=== PATIENT | male | born 1980 | race Caucasian/White ===

== ENCOUNTER 2016-11-02 22:17 | Emergency (ER) | payer BC ==
[~2016-11-02] VITALS: Ht 172.7 cm; Wt 76.0 kg
[2016-11-02 22:24] VITALS: TEMP 37; Ht 172.7 cm; Wt 76.0 kg
[2016-11-02] MEDS ORDERED: XYLOCAINE 1%/SOD BICARB 20 ML VIAL INFIL ONE (22:30)
[2016-11-02 23:16] VITALS: BP 154/95; PULSE 87; O2SAT 96
--- NOTE | 2016-11-03 00:37 | EMERGENCY ROOM VISIT NOTE ---
ED Visit Note First contact with patient: 22:30 CHIEF COMPLAINT: Right leg laceration HISTORY OF PRESENT ILLNESS: This 36-year-old patient presents to the emergency department with family after cutting the right leg just above the knee. The bleeding has not stopped. Denies weakness or numbness of the extremity. patient has full range of motion of the extremity The patient rates the pain as mild and 2/10. The patient denies any other injuries. The patient's tetanus shot is up to date. He accidentally cut it on a knife just prior to arrival REVIEW OF SYSTEMS: A 6 system review of systems was completed with positives and pertinent negatives listed in the HPI. ALLERGIES: Environmental MEDICATIONS: None PMH: None SOCIAL HISTORY: No drug use PHYSICAL EXAM: Vital Signs: Reviewed Nurse's notes, vital signs stable. GENERAL : Pleasant male, in no acute distress, well developed, well nourished. SKIN: There is a 3 cm long laceration on the right leg just above the knee. The edges gape apart with traction. There is no foreign material in the wound and it looks clean. There is bleeding. No deep structures such as tendons, bones, or significant blood vessels are seen in the base of the wound. Extension and flexion of the extremity is full and strong. Full range of motion of the extremity. Capillary refill less than 2 seconds. Normal sensation to light and sharp touch. EMERGENCY DEPARTMENT COURSE: I examined the patient. Using sterile technique the wound was cleansed with Betadine. 3 ml of 1% buffered lidocaine was used to anesthetize the patient. The area was sterilely draped. Once the patient was anesthetized, the wound was copiously irrigated under pressure with sterile saline. The wound was explored and there were no deep structures injured. The laceration was repaired using 5 simple interrupted 4-0 nylon sutures. The patient tolerated the procedure well. Hemostasis was achieved. The area was cleaned with sterile saline and dressed with bacitracin ointment and bandage. The patient was discharged home in good condition. Differential diagnosis includes laceration, tendon injury, vascular injury and other etiologies were considered. DIAGNOSIS: Right leg laceration DISCHARGE INSTRUCTIONS & TREATMENT: Keep wound clean and dry. Do not allow any crusting or dried blood to accumulate on sutures. If this occurs, use a 1:1 solution of hydrogen peroxide/water on a Q-tip to clean the wound. Use an antibiotic ointment for 3-4 days, then let wound dry. Suture removal in 10-12 days. Return sooner for any signs of infection (increasing redness, swelling, drainage). Ice and elevate for swelling and pain. Ibuprofen 600 mg and Tylenol 1000 mg every 6 hrs for pain. Keep covered when in sun until sutures removed then SPF 50 or higher for one year. Vitamin E oil if desired two weeks after suture removal for reduction of scar. Current/Historical Medications Miscellaneous Medications None (Patient States No Home Meds) Allergies Uncoded Allergies: ENVIROMENTAL (Allergy, Mild, 05/25/08) NKDA (Allergy, Unknown, 07/24/03) Vital Signs Date Time Temp Pulse Resp B/P Pulse Ox O2 Delivery O2 Flow Rate FiO2 11/02/16 23:16 87 18 154/95 96 Room Air 11/02/16 22:24 37.0 83 16 150/92 96 Room Air Departure Information Impression Primary Impression: Laceration of right knee Dispostion Home / Self-Care Condition GOOD Forms HOME CARE DOCUMENTATION FORM, IMPORTANT VISIT INFORMATION Patient Instructions Formerly [facility], [facility], ED Laceration All Additional Instructions Keep wound clean and dry. Do not allow any crusting or dried blood to accumulate on sutures. If this occurs, use a 1:1 solution of hydrogen peroxide/ water on a Q-tip to clean the wound. Use an antibiotic ointment for 3-4 days, then let wound dry. Suture removal in 10-12 days. Return sooner for any signs of infection (increasing redness, swelling, drainage). Ice and elevate for swelling and pain. Ibuprofen 600 mg and Tylenol 1000 mg every 6 hrs for pain. Keep covered when in sun until sutures removed then SPF 50 or higher for one year. Vitamin E oil if desired two weeks after suture removal for reduction of scar
== END 2016-11-02 23:29 | disposition home or self-care (01) ==
LOC: C.EDB 22:18
DX: S81.011A Laceration without foreign body, right knee, initial encounter (principal); W26.0XXA Contact with knife, initial encounter

== ENCOUNTER 2024-12-15 13:23 | Inpatient (IN) ==
[2024-12-15] MEDS: ACETAMINOPHEN 1,000 MG/100 ML VIAL IV STA (13:53)
[2024-12-15 14:01] LABS: Basophils # (auto) 0.04 K/uL (0.00-0.20); Basophils % (auto) 0.6 %; Eosinophils # (auto) 0.36 K/uL (0.00-0.50); Hematocrit (blood only) 37.5 % (42.0-52.0); Hemoglobin 12.8 g/dl (14.0-18.0); Immature Granulocytes # (auto) 0.02 K/uL (0.01-0.20); Immature Granulocytes % (auto) 0.3 %; Lymphocytes # (auto) 1.07 K/uL (1.20-3.40); Lymphocytes % (auto) 14.8 %; Mean Corpuscular Hemoglobin 29.2 pg (25.0-34.0); Mean Corpuscular Hgb Conc 34.1 g/dL (32.0-36.0); Mean Corpuscular Volume 85.6 fL (80.0-100.0); Mean Platelet Volume 10.7 fL (9.4-12.4); Monocytes # (auto) 1.28 K/uL (0.11-0.59); Monocytes % (auto) 17.7 %; Neutrophils # (auto) 4.46 K/uL (1.40-6.50); Neutrophils % (auto) 61.6 %; Platelet Count 151 K/uL (130-400); RDW Coefficient of Variation 12.4 % (11.5-14.5); RDW Standard Deviation 38.7 fL (36.4-46.3); Red Blood Count 4.38 M/uL (4.70-6.10); White Blood Count 7.23 K/ul (4.8-10.8)
[2024-12-15 14:14] LABS: Alanine Aminotransferase 44 U/L (7-52); Albumin Globulin Ratio 1.4 (0.9-2); Albumin Level 4.2 gm/dl (3.4-5.0); Alkaline Phosphatase 72 U/L (34-104); Anion Gap 6 (3-11); Aspartate Aminotransferase 32 U/L (13-39); BUN Creatinine Ratio 14.2 (10-20); Bilirubin,Total 0.5 mg/dl (0.2-1.0); Blood Urea Nitrogen 15 mg/dl (6-23); Calcium 8.9 mg/dl (8.6-10.3); Carbon Dioxide 28 mmol/L (21-32); Chloride 102 mmol/L (98-107); Creatinine Clr Calc Pharmacy 91.3 ml/min; Glucose 121 mg/dl (70-99(Fasting)); Magnesium 1.7 mg/dl (1.7-2.4); Potassium 3.5 mmol/L (3.5-5.1); Sodium 136 mmol/L (136-145); Total Protein 7.2 gm/dl (6.0-8.3)
--- NOTE | 2024-12-15 14:14 | Emergency Department Note ---
Impression & Plan Acute dyspnea, Acute hypoxemic respiratory failure, RSV infection, Pneumonia ED Provider Note HISTORY OF PRESENT ILLNESS: Patient is a 44-year-old male presenting with shortness of breath. Patient reports that symptoms started 4 days ago. He reports that 3 days ago he had significant amounts of shortness of breath and was febrile. He reports he was feeling well yesterday, but today he was significantly short of breath. He went to [facility] and was given a breathing treatment and his saturations were around 98 and 93%. He was discharged with plans for chest x- ray and laboratory workup at [facility], but patient reports when leaving the [place] [facility], he sat in his car for about 15 minutes because he was so short of breath and did not feel well enough to drive. He reports he walked back into the walk-in clinic and they called 911. Patient denies any chest pain. He reports he has been using his rescue albuterol inhaler more frequently in the last 4 days with little relief in his symptoms. He reports intermittent fevers. He reports he has a cough productive of a yellow sputum. Denies any recent sick contact exposures. Denies any recent travel. Denies any DVT or PE history. He is not on any anticoagulation or antiplatelet therapies. ROS: as above PHYSICAL EXAM: Constitutional: Patient appears in no acute distress. HENT: Head: Normocephalic and atraumatic. Eyes: EOMI, PERRL Mouth/Throat: Mucous membranes moist. Neck: Trachea midline. Neck supple. Cardiovascular: Tachycardic with regular rhythm. No murmurs, rubs or gallops. Intact distal pulses. Pulmonary/Chest: No respiratory distress. Breath sounds clear and equal bilaterally. Expiratory wheezes bilateral lower lung beltran. Patient is on 2 L nasal cannula. Conversationally dyspneic. Abdominal: Abdomen soft, no tenderness, rebound or guarding. Musculoskeletal: No edema, tenderness or deformity noted. Skin: Warm and dry. No rash, erythema, pallor or cyanosis Psychiatric: Appropriate mood and affect for situation. Neurological: Alert and keenly responsive. CN II-XII grossly intact, moving all extremities equally and fully. MDM: - Vitals signs showed hypertension, tachycardia, fever and hypoxia. Patient placed on supplemental oxygen. - History obtained via patient. History as above. - Chronic conditions affecting care: Asthma - Differential diagnoses include, but are not limited to: Congestive heart failure; acute coronary syndrome; COPD/asthma exacerbation; pulmonary edema; pulmonary embolism; pneumonia; pneumothorax; viral syndrome - Order placed for continuous cardiac monitoring. At this time, monitor showed rate of 120 bpm with normal sinus rhythm, per my interpretation. - External medical records reviewed. - EKG image interpreted by myself showed normal sinus rhythm. Rate tachycardic at 117 bpm. QT 276. No acute ischemic changes. - Laboratory workup interpreted by myself showed normal WBC; normal PT/INR; stable electrolytes; normal lactate; normal troponin; normal procalcitonin - Blood cultures obtained - CXR image reviewed by myself looks like a right-sided pneumonia, per my interpretation. Radiology notes mild bibasilar patchy nodular opacities concerning for infection. - Viral respiratory panel positive for RSV - Patient given 1g IV tylenol for fever. Given an hour long duoneb treatment for his continued wheezing in the emergency department. - Given 80 mg IV solumedrol, 20 mg IV pepcid, 500 mg Po azithromycin and 2g IV rocephin in ER. - After the hour long duoneb treatment, patient's HR elevated at 140 bpm. Patient was taken off of the hour-long treatment after he completed and was transitioned back to nasal cannula. However, his saturations were at about 89% and he had to be increased to 4 L nasal cannula for improvement in his saturations. - CT PE obtained. - Discussion was had with supportive employment case manager about patient's case and need for admission - Hospitalist, Dr. Kumar, consulted for admission - [facility] ASSESSMENT AND PLAN: Diagnosis: Acute dyspnea; acute hypoxic respiratory failure; RSV infection; pneumonia Plan: Admit Past Med/Surg History Problem List (Updated 12/15/24 @ 15:51 by Keely Salinas MD) Pneumonia (Acute) RSV infection (Acute) Acute hypoxemic respiratory failure (Acute) Acute dyspnea (Acute) Social History Smoking Status: Never smoker Preferred Language: Venezuelan Feels Safe at Home: Yes Allergies Allergies Allergy/AdvReac Type Severity Reaction Status Date / Time pollen extracts Allergy Intermediate Wheezing Unverified 12/15/24 15:10 ENVIROMENTAL Allergy Mild Unknown Uncoded 12/15/24 15:10 [id number] Allergy Unknown Unknown Uncoded 12/15/24 15:10 Home Meds Home Medications Medication Instructions Recorded Confirmed albuterol sulfate 90 mcg/actuation 2 puff inhalation Q4H PRN Wheezing 12/15/24 12/15/24 aerosol inhaler montelukast 10 mg tablet 10 mg PO HS 12/15/24 12/15/24 tadalafil 10 mg tablet 10 mg PO DAILY PRN Erectile 12/15/24 12/15/24 Dysfunction Results & Data (ED) Vital Signs Vital Signs - 24 hr 12/15/24 13:27 12/15/24 13:50 12/15/24 14:00 Temperature 38.1 C H Temperature Source Oral Pulse Rate 121 H 113 H Pulse Rate [Apical] Pulse Rate from SpO2 Sensor Pulse Rhythm Regular Pulse Strength Normal Respiratory Rate 24 Respiratory Effort / Characteristics Labored Respiratory Pattern Regular Blood Pressure 152/102 H Blood Pressure Mean 118 Blood Pressure Position Sitting Pulse Oximetry 93 89 L Oxygen Delivery Method Room Air Room Air Oxygen Flow Rate Sepsis Recent Fever Within 48 Hours No Sepsis New/Unexplained Change in Mental Status No Sepsis Action Taken by Nursing No Action Required Oxygen Flow Rate - Titration 2 Pulse Oximetry Post Tiitration 95 12/15/24 14:25 12/15/24 15:00 Temperature Temperature Source Pulse Rate 117 H Pulse Rate [Apical] 111 H Pulse Rate from SpO2 Sensor 116 H Pulse Rhythm Pulse Strength Respiratory Rate 20 23 Respiratory Effort / Characteristics Non-Labored Spontaneous Respiratory Pattern Blood Pressure 143/98 H Blood Pressure Mean 113 Blood Pressure Position Pulse Oximetry 91 98 Oxygen Delivery Method Nasal Cannula Oxygen Flow Rate 2 Sepsis Recent Fever Within 48 Hours Sepsis New/Unexplained Change in Mental Status Sepsis Action Taken by Nursing Oxygen Flow Rate - Titration Pulse Oximetry Post Tiitration Laboratory Data 12/15/24 13:34 12/15/24 13:34 Lab Results 12/15/24 12/15/24 12/15/24 Range/Units 13:34 13:52 14:13 WBC 7.23 (4.8-10.8) K/ul RBC 4.38 L (4.70-6.10) M/uL Hgb 12.8 L (14.0-18.0) g/dl Hct 37.5 L (42.0-52.0) % MCV 85.6 (80.0-100.0) fL MCH 29.2 (25.0-34.0) pg MCHC 34.1 (32.0-36.0) g/dL RDW Std Deviation 38.7 (36.4-46.3) fL RDW Coeff of Amrit 12.4 (11.5-14.5) % Plt Count 151 (130-400) K/uL MPV 10.7 (9.4-12.4) fL Immature Gran % (Auto) 0.3 % Neut % (Auto) 61.6 % Lymph % (Auto) 14.8 % [place] % (Auto) 17.7 % Eos % (Auto) 5.0 % Baso % (Auto) 0.6 % Neut # (Auto) 4.46 (1.40-6.50) K/uL Lymph # (Auto) 1.07 L (1.20-3.40) K/uL [place] # (Auto) 1.28 H (0.11-0.59) K/uL Eos # (Auto) 0.36 (0.00-0.50) K/uL Baso # (Auto) 0.04 (0.00-0.20) K/uL Immature Gran # (Auto) 0.02 (0.01-0.20) K/uL PT 11.4 (9.0-12.0) Seconds INR 1.1 (0.9-1.1) APTT 27 (21-31) Seconds PTT Ratio 1.0 Sodium 136 (136-145) mmol/L Potassium 3.5 (3.5-5.1) mmol/L Chloride 102 (98-107) mmol/L Carbon Dioxide 28 (21-32) mmol/L Anion Gap 6 (3-11) BUN 15 (6-23) mg/dl Creatinine 1.06 (0.6-1.4) mg/dl Est Cr Clr Drug Dosing 91.3 ml/min eGFR 87.65 BUN/Creatinine Ratio 14.2 (10-20) Glucose 121 H (70-99(Fasting)) mg/dl Lactate 0.9 (0.4-2.0) mmol/L Calcium 8.9 (8.6-10.3) mg/dl Magnesium 1.7 (1.7-2.4) mg/dl Total Bilirubin 0.5 (0.2-1.0) mg/dl AST 32 (13-39) U/L ALT 44 (7-52) U/L Alkaline Phosphatase 72 (34-104) U/L Troponin I High Sens < 2.3 (0-20) pg/ml Total Protein 7.2 (6.0-8.3) gm/dl Albumin 4.2 (3.4-5.0) gm/dl Globulin 3.0 (2.5-4.0) gm/dl Albumin/Globulin Ratio 1.4 (0.9-2) Procalcitonin 0.11 (0-0.5) ng/ml Adenovirus (PCR) Not Detected (NotDetected) B. pertussis DNA (PCR) Not Detected (NotDetected) B.parapertussis DNA PCR Not Detected (NotDetected) C. pneumoniae DNA (PCR) Not Detected (NotDetected) Coronavirus OC43 (PCR) Not Detected (NotDetected) Coronavirus HKU1 (PCR) Not Detected (NotDetected) Coronavirus 229E (PCR) Not Detected (NotDetected) SARS-CoV-2 (PCR) Not Detected (NotDetected) Coronavirus NL63 (PCR) Not Detected (NotDetected) Human Metapneumovir PCR Not Detected (NotDetected) Influenza Type A (PCR) Not Detected (NotDetected) Influenza Type B (PCR) Not Detected (NotDetected) M. pneumoniae (PCR) Not Detected (NotDetected) Parainfluenza 1 (PCR) Not Detected (NotDetected) Parainfluenza 2 (PCR) Not Detected (NotDetected) Parainfluenza 3 (PCR) Not Detected (NotDetected) Parainfluenza 4 (PCR) Not Detected (NotDetected) RSV (PCR) DETECTED A (NotDetected) Entero/Rhino (PCR) Not Detected (NotDetected) Administered Medications Discontinued Medications Albuterol (Albut/Ipratrop 3mg/0.5mg Neb 3 Ml Vial) 12 ml NEB ONE ONE; Protocol Stop: 12/15/24 14:11 Last Admin: 12/15/24 14:20 Dose: 12 ml Documented By: JTM Azithromycin (Azithromycin 250 Mg Tab) 500 mg PO NOW ONE Stop: 12/15/24 15:36 Last Admin: 12/15/24 15:48 Dose: 500 mg Documented By: BS Acetaminophen (Ofirmev) 1,000 mg in 100 mls @ 400 mls/hr IV NOW STA Stop: 12/15/24 13:55 Last Infusion: 12/15/24 15:55 Dose: Infused Documented By: Admin: 12/15/24 13:53 Dose: 400 mls/hr Documented By: GEORGE Famotidine (Pepcid 20mg Iv Push) 20 mg in 5 mls @ 2.5 mls/min IV NOW STA Stop: 12/15/24 15:36 Last Admin: 12/15/24 15:49 Dose: 2.5 mls/min Documented By: BS Ceftriaxone Sodium (Rocephin) 2,000 mg in 50 mls @ 100 mls/hr IV NOW STA Stop: 12/15/24 16:04 Last Admin: 12/15/24 15:49 Dose: 100 mls/hr Documented By: KELLY Ioversol (Optiray 320 125ml) 118 ml IV ONCE ONE Stop: 12/15/24 16:04 Last Admin: 12/15/24 16:03 Dose: 118 ml Documented By: DAINA Methylprednisolone (Methylprednisolone 125 Mg/2 Ml Vial) 80 mg IV NOW STA Stop: 12/15/24 15:36 Last Admin: 12/15/24 15:49 Dose: 80 mg Documented By: KELLY Imaging Data Radiologist's Impression: Chest X-Ray 12/15/24 13:30 Chest radiograph, one view History: Shortness of breath Comparison: None Findings: Single AP view of the chest performed. Mild patchy nodular opacities seen in the lung bases, right greater than left. Pleural effusion. No pneumothorax. The cardiomediastinal silhouette is within normal limits. Normal pulmonary vascularity. No evidence for lymphadenopathy. No visualized bony or soft tissue abnormality. Impression: Mild bibasilar patchy nodular opacities, concerning for infection Electronically signed by Farshad Mckeon 12-15-2024 2:16 PM Discharge Plan Visit Data Chief Complaint: Shortness of Breath/Dyspnea Stated Complaint: Shortness of Breath/Dyspnea ED Provider: Keely Salinas Discharge Problem: Acute dyspnea, Acute hypoxemic respiratory failure, RSV infection, Pneumonia Forms Stand Alone Forms: [facility] Prescriptions Prescriptions: No Action montelukast 10 mg tablet 10 mg PO HS albuterol sulfate 90 mcg/actuation HFA aerosol inhaler 2 puff INHALATION Q4H PRN (Reason: Wheezing) tadalafil 10 mg tablet 10 mg PO DAILY PRN (Reason: Erectile Dysfunction) Referrals Referrals: Sharan Blanchard MD [Primary Care Provider] -
[2024-12-15] MEDS: ALBUT/IPRATROP 3MG/0.5MG NEB 3 ML VIAL NEB ONE (14:20)
[2024-12-15 14:21] LABS: Troponin I High Sensitivity < 2.3 pg/ml (0-20)
[2024-12-15 14:27] LABS: INR 1.1 (0.9-1.1); Partial Thromboplastin Time 27 Seconds (21-31); Prothrombin Time 11.4 Seconds (9.0-12.0)
[2024-12-15 14:58] LABS: Adenovirus PCR Not Detected (NotDetected); Bordetella parapertussis PCR Not Detected (NotDetected); Bordetella pertussis PCR Not Detected (NotDetected); Chlamydia pneumoniae PCR Not Detected (NotDetected); Coronavirus 229E PCR Not Detected (NotDetected); Coronavirus CoV-2 (COVID19)PCR Not Detected (NotDetected); Coronavirus HKU1 PCR Not Detected (NotDetected); Coronavirus NL63 PCR Not Detected (NotDetected); Coronavirus OC43PCR Not Detected (NotDetected); Human Metapneumovirus PCR Not Detected (NotDetected); Influenza A PCR Not Detected (NotDetected); Influenza B PCR Not Detected (NotDetected); Mycoplasma pneumoniae PCR Not Detected (NotDetected); Parainfluenza Virus 1 PCR Not Detected (NotDetected); Parainfluenza Virus 2 PCR Not Detected (NotDetected); Parainfluenza Virus 3 PCR Not Detected (NotDetected); Parainfluenza Virus 4 PCR Not Detected (NotDetected); Respiratory Syncytial VirusPCR DETECTED (NotDetected); Rhinovirus/Enterovirus PCR Not Detected (NotDetected)
[2024-12-15] MEDS: AZITHROMYCIN 250 MG TAB PO ONE (15:48)
[2024-12-15] MEDS: FAMOTIDINE 20MG IV PUSH 20 MG/5 ML SYR IV STA (15:49)
[2024-12-15] MEDS: methylPREDNISolone 125 MG/2 ML VIAL IV STA (15:49)
[2024-12-15] MEDS: cefTRIAXone SODIUM 2,000 MG/50 ML BAG IV STA (15:49)
[2024-12-15] MEDS: OPTIRAY 320 125ml IV ONE (16:03)
--- NOTE | 2024-12-15 16:18 | History & Physical Report ---
Date of Service December 15, 2024 Assessment & Plan (1) Acute hypoxemic respiratory failure: (2) RSV infection: Plan Mr. Tran is a 44 year old gentleman with past medical history remarkable for obesity, asthma, and erectile dysfunction presented to [facility] ED due to shortness of breath and admitted to [facility] for management of acute hypoxic resp failure iso RSV pneumonia #Acute hypoxic resp failure #RSV pneumonia #Asthma exacerbation CXR with opacities, CTA obtained by ED iso tachycardia, no emboli s/p CTX and axithro, solumedrol, 1 hour neb procal 0.11 Continue with Azithro 500mg x 3 days for antiinflammatory, atypical coverage, however, low suspicion for other bacterial superimposed pneumonia at this time Continue with IV solumedrol 40mg qam, consider transition to po Schedule xopenex over albuterol iso sinus tachycardia Mucinex to aid in clearance tylenol prn Wean oxygen as able encourage ambulation Symptomatic management #Seasonal allergies continue zyrtec and flonase #Sinus tachycardia noted s/p prolonged neb Monitor on tele utilize xopenex at this time q 6 #obesity follows OP physician and working to lose weight dvt ppx lovenox Full Code dispo likely 1-2 days contingent on o2 requirement Admission and Anticipated Discharge Date Admission Date: Time spent evaluating patient, direct bedside care, chart review, placing orders, interpretation of diagnostic studies, discussion with consultants, patient, and family members, as well as other required patient management activities is 75 minutes. History of Present Illness Chief Complaint: SOB Primary Care Provider: Sharan Blanchard MD Mr. Tran is a 44 year old gentleman with past medical history remarkable for obesity, asthma, and erectile dysfunction presented to [facility] ED due to shortness of breath. Patient states he noted he was feeling poorly on Tuesday. He experienced weakness and fatigue mostly, until Tuesday evening until this morning, when he noted more shortness of breath and coughing. He began using his albuterol inhaler without much improvement prompting his presentation to a [facility]. They administered a breathing treatment and did a walk test with normal saturations; however, upon attempting to leave the clinic, patient felt lightheaded and more short of breath. EMS was called and patient was brought to ED. Patient denies sputum production, chest pain, diarrhea, urinary symptoms. He reports subjective fevers, cough, and wheezing. He reports notable improvement since arrival to ED, but still with o2 requirement Of note, heart rates in 120s s/p 1 hour long neb treatment In the ED, vitals were notable for BP of 140s-150s HR of 110s-120s, and O2 sat of high 90s on 4L NC TMAX 38.1 Imaging revealed opacities consistent with infection, RSV positive EKG sinus tachycardia ED interventions: azithro, Rocephin, methylpred, albuterol Patient to be admitted to [facility] for further evaluation and management of acute hypoxic resp failure iso RSV infection Allergies Allergy/AdvReac Type Severity Reaction Status Date / Time pollen extracts Allergy Intermediate Wheezing Unverified 12/15/24 15:10 ENVIROMENTAL Allergy Mild Unknown Uncoded 12/15/24 15:10 [id number] Allergy Unknown Unknown Uncoded 12/15/24 15:10 Home Medications Medication Instructions Recorded Confirmed Type albuterol sulfate 90 mcg/actuation 2 puff inhalation Q4H PRN Wheezing 12/15/24 12/15/24 History aerosol inhaler montelukast 10 mg tablet 10 mg PO HS 12/15/24 12/15/24 History tadalafil 10 mg tablet 10 mg PO DAILY PRN Erectile 12/15/24 12/15/24 History Dysfunction Past Med/Surg History Problem List (Updated 12/15/24 @ 18:05 by Jalyn Kumar MD) Pneumonia (Acute) RSV infection (Acute) Acute hypoxemic respiratory failure (Acute) Acute dyspnea (Acute) Medical History (Updated 12/15/24 @ 18:05 by Jalyn Kumar MD) Erectile disorder Obese Asthma Social History Smoking Status: Never smoker Preferred Language: Lithuanian Feels Safe at Home: Yes Review of Systems Review of Systems: Constitutional: (+) fever/chills, (-) recent loss of weight, (-) appetite changes, (-) night sweats. Head: (-) headache, (-) dizziness. Eye: (-) blurring of vision, (-) double vision, (-) redness. Ear: (-) hearing loss, (-) discharge, (-) vertigo Nose: (-) discharge, (-) bleeding, (-) congestion, (-) post nasal drip. Throat: (-) sore throat, (-) hoarseness of voice, (-) odynophagia. Cardiovascular: (-) chest pain, (-) palpitations, (-) syncope, (-) orthopnea, (- ) PND, (-) leg swelling. Respiratory: (+) shortness of breath, (+) cough, (+) wheezing, (-) hemoptysis. Neuro: (-) weakness in extremities, (-) numbness, (-) tingling, (-) tremor. Gastrointestinal: (-) belly pain, (-) belly distension, (-) nausea, (-) vomiting, (-) diarrhea, (-) constipation Genitourinary: (-) hematuria, (-) dysuria, (-) polyuria, (-) hesitancy, (-) frequency, (-) urinary incontinence. Musculoskeletal: (+) myalgia, (-) arthralgia. Skin: (-) rashes. Endocrine: (-) heat/cold intolerance. Psychiatry: (-) depression, (-) hallucination. Physical Exam Physical Exam: GENERAL APPEARANCE: AxOx4, generally well-appearing male, no acute distress. HEENT: NC, AT. MMM. EOMI, clear conjunctiva, oropharynx clear. NECK: Supple without lymphadenopathy. No stiffness or restricted ROM. HEART: Normal rate and regular rhythm, normal S1/S1, no m/r/g LUNGS: expiratory wheezing L>R, scattered ABDOMEN: Soft, nontender, nondistended with good bowel sounds heard. BACK: No CVAT, no obvious deformity. EXTREMITIES: Without cyanosis, clubbing or edema. NEUROLOGICAL: Grossly nonfocal. Alert and oriented, moving all 4 extremities. CN not formally tested but appear grossly intact. Skin: Warm and dry without any rash. Results & Data Results & Data Vital Signs (Past 12 Hours) Vital Signs Temp Pulse Pulse Resp BP Pulse Ox O2 Del Method 12/15/24 15:00 117 H 23 143/98 H 98 12/15/24 14:25 111 H 20 91 Nasal Cannula 12/15/24 14:00 113 H 12/15/24 13:50 89 L Room Air 12/15/24 13:27 38.1 C H 121 H 24 152/102 H 93 Room Air O2 Flow Rate 12/15/24 15:00 12/15/24 14:25 2 12/15/24 14:00 12/15/24 13:50 12/15/24 13:27 Laboratory Results Short CBC 12/15/24 Range/Units 13:34 WBC 7.23 (4.8-10.8) K/ul Hgb 12.8 L (14.0-18.0) g/dl Hct 37.5 L (42.0-52.0) % Plt Count 151 (130-400) K/uL BMP 12/15/24 13:34 Sodium 136 Potassium 3.5 Chloride 102 Carbon Dioxide 28 BUN 15 Creatinine 1.06 Glucose 121 H Calcium 8.9 Liver Function 12/15/24 Range/Units 13:34 Total Bilirubin 0.5 (0.2-1.0) mg/dl AST 32 (13-39) U/L ALT 44 (7-52) U/L Alkaline Phosphatase 72 (34-104) U/L Albumin 4.2 (3.4-5.0) gm/dl Diagnostic Findings Home Medications Medication Instructions Recorded Confirmed Last Taken albuterol sulfate 90 mcg/actuation 2 puff inhalation Q4H PRN Wheezing 12/15/24 12/15/24 12/15/24 aerosol inhaler montelukast 10 mg tablet 10 mg PO HS 12/15/24 12/15/24 2 Days Ago ~12/13/24 tadalafil 10 mg tablet 10 mg PO DAILY PRN Erectile 12/15/24 12/15/24 Unknown Dysfunction Active Medications Generic Name Dose Route Start Last Admin Trade Name Freq PRN Reason Stop Dose Admin Magnesium Sulfate/Dextrose 1 gm in 100 mls @ 50 mls/hr 12/15/24 16:30 12/15/24 17:12 Magnesium Sulfate / D5w IV 12/15/24 20:29 50 mls/hr Q2H [facility] Administration Medications Administered Home Medications Medication Instructions Recorded Confirmed albuterol sulfate 90 mcg/actuation 2 puff inhalation Q4H PRN Wheezing 12/15/24 12/15/24 aerosol inhaler montelukast 10 mg tablet 10 mg PO HS 12/15/24 12/15/24 tadalafil 10 mg tablet 10 mg PO DAILY PRN Erectile 12/15/24 12/15/24 Dysfunction Magnesium Sulfate/Dextrose (Magnesium Sulfate / D5w) 1 gm in 100 mls @ 50 mls/hr IV Q2H TWAN Stop: 12/15/24 20:29 Last Admin: 12/15/24 17:12 Dose: 50 mls/hr Documented By: KELLY
[2024-12-15] MEDS: MAGNESIUM SULFATE / D5W 1 GM/100 ML BAG IV SCH (17:12)
[2024-12-15] MEDS: POTASSIUM CHLORIDE CRTAB 20 MEQ TABCR PO STA (17:12)
--- NOTE | 2024-12-15 17:25 | CT Scan Report ---
EXAM: CT angio chest PE protocol CLINICAL HISTORY: PE TECHNIQUE: CT angiography of the chest was performed with and without intravenous contrast with the following protocol: axial images with, reconstructed coronal and sagittal images. Non-contrast images were initially acquired, followed by contrast-enhanced images in arterial and venous phases. Intravenous contrast was administered using automated injection techniques. Bolus tracking was employed to optimize arterial phase imaging. One of these 3D techniques was utilized: Maximum Intensity Pixel (MIP), 3D Reconstructed Images, Volume Rendered Images, Surface Shaded Rendering. One of the following dose reduction techniques was utilized for this exam: Automated exposure control, adjustment of the mA and/or kV according to patient size, and use of iterative reconstruction. COMPARISON: No prior studies available for comparison. FINDINGS: Aorta and Great Vessels: Ascending Aorta: Normal in caliber, no aneurysm, dissection, or significant atherosclerosis. Aortic Arch: Normal in caliber, no aneurysm, dissection, or significant atherosclerosis. Descending Aorta: Normal in caliber, no aneurysm, dissection, or significant atherosclerosis. Pulmonary Arteries: The main pulmonary artery and its branches are patent. No evidence of pulmonary embolism or significant stenosis. Heart: Cardiac Chambers: Normal in size. No evidence of cardiomegaly. Pericardium: No pericardial effusion or thickening. Lungs and Pleura: Multiple areas of ground glass opacities and consolidation patches are seen at the right lower lung zone with airbronchogram inside, associated with atelactatic bands No pleural effusion or pleural thickening. Mediastinum: Few mediastinal lymphadenopathies do not reach the suspicious size Normal appearance of the trachea and central bronchi. Hilar Structures: Hilar structures are normal without enlargement. Chest Wall: No mass lesions or abnormalities in the chest wall. Vascular Structures: Superior Vena Cava: Patent without evidence of stenosis or thrombus. Inferior Vena Cava: Patent without evidence of stenosis or thrombus. Bones and Soft Tissues: No fractures, lytic, or blastic lesions of the visualized bony structures. Soft tissues are unremarkable. IMPRESSION: - The study is negative for pulmonary embolism. - Consolidation patches are seen in the right lower lung zone possibly pneumonic patches. - Correlate clinically. Electronically signed by Jose Elias Olivera 12-15-2024 5:25 PM
--- NOTE | 2024-12-15 18:28 | Electrocardiogram Report ---
Test Reason : Blood Pressure : */* mmHG Vent. Rate : 117 BPM Atrial Rate : 117 BPM P-R Int : 148 ms QRS Dur : 74 ms QT Int : 276 ms P-R-T Axes : 63 105 55 degrees QTcB Int : 385 ms Sinus tachycardia Possible Left atrial enlargement Rightward axis Borderline ECG No previous ECGs available Confirmed by Farshad Marlow ([id number]) on 12/15/2024 6:28:31 PM Referred By: REFERRED SELF Confirmed By: Farshad Marlow
[2024-12-15] MEDS ORDERED: BENZONATATE 100 MG CAPSULE PO PRN (18:36)
[2024-12-15] MEDS ORDERED: MELATONIN 3 MG TAB PO PRN (18:36)
[2024-12-15] MEDS ORDERED: POLYETHYLENE (MIRALAX) 17 GM PACK PO PRN (18:36)
[2024-12-15] MEDS ORDERED: ONDANSETRON INJ 2 MG/ML 2 ML VIAL IV PRN (18:36)
[2024-12-15 18:39] LABS: Iron 19 mcg/dl (35-175); Total Iron Binding Cap Calc 385 mcg/dl (250-450); Transferrin 275 mg/dl (200-360); Transferrin (FE) Percent Satur 5 % (20-50)
--- OUTSIDE RECORDS SUMMARY | 2024-12-15 18:45 | External Medical Summary | Summary of Care ---
Author Name Unknown Organization [facility] Address [address] [place] [address] Phone [phone] Care Team Providers Care Train Operations Supervisor Name Role Phone Sharan Blanchard MD Primary Care Provider [phone] Reason for Visit * Reason Onset Date Comments Cold Symptoms Respiratory Infection 12/15/2024 Encounter Details Date Type Department Care Team (Latest Contact Info) Description 12/15/2024 11:30 AM EDT [facility] [address] [phone] Lucio Bardales PA-C [address] [place] [phone] SOB (shortness of breath)*; Hypoxia; Pneumonia of both lungs due to infectious organism, unspecified part of lung; Nausea Allergies Active Allergy Reactions Criticality Noted Date Comments Cat Dander Edema airway High 11/13/2014 Egg White (Egg Protein) Edema airway High 11/13/2014 Pollen Other (Please comment) 11/13/2014 Stuffy nose, itchy, watery eyes. Tomato Edema airway High 11/13/2014 documented as of this encounter (statuses as of 12/15/2024) Medications Saline Nasal Fairview 0.65 % Nasal Solution (Hendricks) Administer 1 Fairview into nostril as needed for Congestion. Active Fluticasone Propionate 50 MCG/ACT Nasal Suspension (Flonase) Administer 2 Sprays into each nostril in the morning. 48 mL 1 4 Active Montelukast Sodium 10 MG Oral Tablet (Singulair)Indic ations:Allergic rhinitis, unspecified seasonality, unspecified trigger TAKE 1 TABLET BY MOUTH EVERYDAY AT BEDTIME Strength: 10 mg 90 Tablet 1 5 Active Albuterol Sulfate HFA 108 (90 Base) MCG/ACT Inhalation Aerosol SolutionIndicati ons:Chronic cough,Wheeze INHALE 2 PUFFS BY MOUTH EVERY 4 HRS NEEDED FOR WHEEZING Strength: 108 (90 BASE) MCG/ACT 36 g 5 5 Active Tadalafil 10 MG Oral TabletIndication s:Erectile dysfunction, unspecified erectile dysfunction type Take 1 Tablet by mouth daily as needed for Erectile Dysfunction. 10 Tablet 5 Active Amoxicillin 500 MG Oral Capsule (Amoxil)Indicati ons:SOB (shortness of breath),Hypoxia, Pneumonia of both lungs due to infectious organism, unspecified part of lung Take 1 Capsule by mouth in the morning and 1 Capsule at noon and 1 Capsule before bedtime. Do all this for 7 days. 21 Capsule 5 12/23/19 25 Active Azithromycin 250 MG Oral Tablet (Zithromax Z-Cecil)Indication s:SOB (shortness of breath),Hypoxia, Pneumonia of both lungs due to infectious organism, unspecified part of lung Take two tablets by mouth on first day, then 1 tablet daily until gone 6 Tablet 5 Active predniSONE 10 MG Oral Tablet (Deltasone)Indic ations:SOB (shortness of breath),Hypoxia, Pneumonia of both lungs due to infectious organism, unspecified part of lung Take 5 tabs for 2 days, 4 tabs for 2 days, 3 tabs for 2 days, 2 tabs for 2 days 1 tab for 2 days 30 Tablet 5 Active Hospital, Clinic, or Other Facility Administered Medication Ordered Dose Route Frequency Start Date End Date Status albuterol-ipratropium (Duoneb) inhalation solution 3 mLIndications:SOB (shortness of breath),Hypoxia 3 mL NEBULIZER ONCE 12/15/2024 12/15/2024 Ended ondansetron ODT (Zofran) tab 4 mgIndications:Nausea 4 mg OR ONCE 12/15/2024 12/15/2024 [address] d documented as of this encounter (statuses as of 12/15/2024) Active Problems Problem Noted Date Diagnosed Date Screening for cardiovascular condition 5 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 Allergic rhinitis 03/02/2013 Elevated blood pressure, situational 02/21/2012 Overweight (BMI 25.0-29.9) 09/08/2011 Overview (09/08/2011): BMI= 27.10 09/08/11 Epidermal inclusion cyst 09/08/2011 documented as of this encounter (statuses as of 12/15/2024) Resolved Problems Problem Noted Date Diagnosed Date Resolved Date Encounter for sterilization 11/13/2014 03/16/2018 Overview (05/30/2017): ICD-10 update of inactive term Overweight (BMI 25.0-29.9) 11/11/2014 0 03/16/2018 Overview (11/11/2014): bmi= 28.58 11/11/14 Chews tobacco 11/11/2014 09/10/2022 Chronic sinusitis 05/05/2012 03/16/2018 Chronic rhinitis 05/05/2012 03/02/2013 Cough 05/05/2012 03/16/2018 Open wound of finger 02/21/2012 018 Need for diphtheria-tetanus- pertussis (Tdap) vaccine 02/21/2012 03/16/2018 Scalp cyst 09/08/2011 03/16/2018 Routine medical exam 09/08/2011 018 Arm numbness 09/08/2011 03/16/2018 Tobacco use disorder 09/08/2011 015 Chickenpox 03/16/2018 documented as of this encounter (statuses as of 12/15/2024) Immunizations Name Administration Dates Next Due TDAP (age 10 and older)(Boostrix) 02/28/2012 documented as of this encounter Social History Tobacco Use Types Packs/Day Years Used Date Smoking Tobacco: Former Cigarettes 0.5 4 0 11/28/2007 - 11/28/2011 Passive Smoke Exposure: Past Smokeless Tobacco: Former Snuff Quit: 07/05/2018 Comments:began at age 26, la st tried to quit 2010 Alcohol Use Standard Drinks/Week Comments Yes 0 (1 standard drink = 0.6 oz pur e alcohol) once a week PHQ-2 Answer Date Recorded PHQ-2 Score 0 05/22/2019 Hunger Vital Sign Answer Date Recorded Within the past 12 months, y ou worried that your food would run out before you got the money to buy more. Never true 08/31/19 25 Within the past 12 months, t he food you bought just didn't last and you didn't have money to get more. Never true 08/31/2024 Childcare Answer Date Recorded Do you feel overwhelmed with taking care of a child, family member or friend? No 08/31/2024 Does your family need help f inding childcare? (Household - for ages 0-17 years) Not on file 08/31/2024 Clothing Answer Date Recorded Have you been unable to get clothing when it was really needed? No 08/31/2024 Is your family able to get c lothes or diapers when needed? (Household - for ages 0-17 years) Not on file 08/31/2024 Personal Safety Answer Date Recorded Do you feel unsafe or have concerns for your saf ety? No 08/31/2024 Do you have concerns for you r family's safety? (Household - for ages 0-17 years) Not on file 08/31/2024 Utilities Answer Date Recorded Do you have trouble paying y our heating, water, or electric bill? No 08/31/2024 Is your family able to pay t he heat, water, or electric bill? (Household - for ages 0-17 years) Not on file 08/31/2024 Does your family have access to good internet? (Household - for ages 0-17 years) Not on file 08/31/2024 Employment Status Answer Date Recorded Are you unemployed or without regular income? No 08/31/2024 Does the household have a re gular source of income? (Household - for ages 0-17 years) Not on file 08/31/2024 Social Connections Answer Date Recorded How often do you feel lonely or isolated from those around you? Sometimes 08/31/2024 Financial Resource Strain Answer Date R ecorded Do you have any trouble payi ng for your medications, or do you think you might in the future? No 08/31/2024 Does your family have troubl e paying for medicine? (Household - for ages 0-17 years) Not on file 08/31/2024 Transportation Needs Answer Date Record ed Do you have trouble getting a ride to medical visits or work? (Adult - for ages 18 years and over) Not on file 08/31/2024 Does your family have a hard time getting a ride to doctors visits? (Household - for ages 0-17 years) Not on file 08/31/2024 Has lack of transportation k ept you from medical appointments, meetings, work, or from getting things needed for daily living? Check all that apply. No 08/31/2024 Do you (or your family) have trouble finding or paying for a ride (transportation)? (Household - for ages 0-17 years) Not on file 08/31/2024 Housing Stability Answer Date Recorded Do you currently live in a s helter or have no steady place to sleep at night? Yes 08/31/2024 Do you think you are at risk of becoming homeless? (Adult - for ages 18 years and over) Not on file 08/31/2024 Does your family worry about paying for your home or becoming homeless? (Household - for ages 0-17 years) Not on file 0 08/31/2024 Are you homeless or worried that you might be in the future? No 08/31/2024 Are you (or your family) corinna eless or worried that you might be in the future? (Household - for ages 0-17 years) Not on file Food Insecurity Answer Date Recorded Do you need food for this week? No 08/31/2024 Are you able to get enough f ood for your family? (Household - for ages 0-17 years) Not on file 08/31/2024 Does your family need food t his week? (Household - for ages 0-17 years) Not on file 08/31/2024 Do you always have enough fo od for your family? (Household - for ages 0-17 years) Not on file 08/31/2024 Food Insecurity Answer Date Recorded Within the past 12 months, y ou worried that your food would run out before you got the money to buy more. Never true 08/31/19 25 Within the past 12 months, t he food you bought just didn't last and you didn't have money to get more. Never true 08/31/2024 Do you need food for this week? No 08/31/2024 Sex and Gender Information Value Date Recorded Sex Assigned at Male 02/02/2019 2:40 PM EDT Legal Sex Male 6:56 AM EST Gender Identity Male 02/02/2019 2:40 PM EDT Sexual Orientation Straight 02/02/2019 2: 40 PM EDT documented as of this encounter Last Filed Vital Signs Vital Sign Reading Time Taken Comments Blood Pressure 130/60 12/15/2024 11:39 AM EDT Pulse 120 12/15/2024 11:39 AM EDT Temperature 38.2 °C (100.8 °F) 12/15/2024 11:39 AM EDT Respiratory Rate 20 12/15/2024 11:39 AM EDT Oxygen Saturation 90% 12/15/2024 11:39 AM EDT Inhaled Oxygen Concentration - - Weight 88.7 kg (195 lb 8 oz) 12/15/2024 11:39 AM EDT Height 172.7 cm (5' 8") 12/15/2024 11:39 AM EDT Body Mass Index 29.73 12/15/2024 11:39 AM EDT documented in this encounter Patient Instructions * Patient Instructions* Lucio Bardales PA-C - 12/15/2024 12:09 PM EDT [facility] for Xray and labs. Start amoxicillin for a week. Zpack for 5 days. Start prednisone taper Albuterol as needed. Start a daily nasal spray such as Flonase, Nasacort, OR Nasonex. They work best if used consistently. In addition to one of these medicated nasal sprays use saline nasal spray to avoid dryness and thinout mucous Over the Counter (OTC) antihistamine (claritin, zyrtec, xyzal or francesca) can also be helpful for sinus symptoms. OTC decongestants: Sudafed, Mucinex-D (may have to get from behind pharmacy counter; you have to show your ID) can be used for nasal/sinus congestion for just a few days. If you have high blood pressure, you can use Coricidin. OTC cough suppressants as needed, including delsym, robitussin, cough drops, honey. Continue supportive measures: Increase clear, non-sugary fluid intake. Get plenty of rest Use a cool mist vaporizer or humidifier daily and you can take hot showers for steam therapy. Do warm salt water gargles and/or chloraseptic throat spray, throat lozenges (Cepacol) for any sorethroat. Honey, if not concerned about diabetes or elevated blood sugar levels, can also be very helpful forsorethroat. You may also use ibuprofen or acetaminophen OTC for relief of pain or fevers. If you had a negative rapid strep test, we will inform you if your PCR ("the send out") comes back positive, and start you on antibiotics. Otherwise, you may assume the PCR was also negative. If you had a viral swab (e.g. COVID, Flu, RSV, or otherwise), we will notify you if you test positive. If you do not hear from us, assume your test was negative. Follow up with PCP or return if no improvement in a week, or sooner if worse. Go to the ED if any severe symptoms appear acutely documented in this encounter Progress Notes * Lucio Bardales PA-C - 12/15/2024 12:24 PM EDT Addendum: After patient ambulated to vehicle, he came back b/c he felt increasingly SOB, dizzy, and unstable enough not to drive. SpO2% on RA was 90-91% with HR of 134. EKG was ordered and He was placed on 2L NC EKG done today is sinus tachycardia with no ST changes. Algorithm reveals L posterior fascicular block. On 2L SpO2% 94-96%. Recommend EMS transfer to ER for further work-up and management. Pt refused, wants to go via POV. Discussed risks of this, which include, worsening condition or . Verbalized understanding. I believe he has capacity to make this decision. Zofran given for nausea. Patient's sister and arrived. Collectively agreed to go via EMS. 911 called for transport to ER * AlicjaLucio PA-C - 12/15/2024 12:10 PM EDT Nursing Notes: Lena Plata LPN 12/15/24 1142 Signed Roni Tran is a 44 year old male who presents to walk-in clinic today complaining of Chief Complaint Patient presents with Cold Symptoms Brief history:cold sx Onset/duration: 3 days. OTC treatments tried:mucinex, abdulaziz seltzer plus, ibuprofen Patient is accompanied by no one for today's visit. Lena Plata LPN 12/15/24 1147 Signed Administrations This Visit albuterol-ipratropium (Duoneb) inhalation solution 3 mL Admin Date 12/15/2024 Action Given Dose 3 mL Route Nebulizer Documented By Lena Plata LPN Roni Tran is a 44 year old male who presents with lower respiratory symptoms for 3 day(s) Patient was accompanied by Self. HPI Severity of Symptoms: Moderate Modifying Factors (what was done since onset of symptoms): see nurse note Timing (how often does it occur): constant Quality (feels like): back pain sob Other associated Signs and Symptoms: cough, wheezing, sob, chest congestion. Has sputum 20% of the time. Chest feels tight. Started out as back ache, body aches, malaise, fatigue. Then developed fever, worsening cough. Denies CP, Palp, Sick contacts, n/v/d/c Denies sinus, st. Denies ear ache. Has two 1st degree family members with h/o VTE Denies recent travel, hormone therapies, recent surgery or cancer treatment ROS See HPI HISTORY Past Medical History: Diagnosis Date Allergic rhinitis tested at age 21 grass, pollen, dust, cats, tomatos, mustard Chews tobacco 11/11/2014 Chickenpox age 3 Epiglottitis age 4 as a child Past Surgical History: Procedure Laterality Date VASECTOMY 12/06/2014 Social History Tobacco Use Smoking status: Former Current packs/day: 0.00 Average packs/day: 0.5 packs/day for 4.0 years (2.0 ttl pk-yrs) Types: Cigarettes Start date: 11/28/2007 Quit date: 11/28/2011 Years since quittin.0 Passive exposure: Past Smokeless tobacco: Former Types: Snuff Quit date: 07/05/2018 Tobacco comments: began at age 26, last tried to quit 2010 Substance Use Topics Alcohol use: Yes Comment: once a week Vaping/E-Cigarette Use Vaping/E-Cigarette Use Never User Vaping/E-Cigarette Substances Vaping/E-Cigarette Devices Current Outpatient Medications Medication Sig Dispense Refill Saline Nasal Fairview 0.65 % Nasal Solution (Hendricks) Administer 1 [place] into nostril as needed for Congestion. Fluticasone Propionate 50 MCG/ACT Nasal Suspension (Flonase) Administer 2 Sprays into each nostril in the morning. 48 mL 1 Montelukast Sodium 10 MG Oral Tablet (Singulair) TAKE 1 TABLET BY MOUTH EVERYDAY AT BEDTIME Strength: 10 mg 90 Tablet 1 Albuterol Sulfate HFA 108 (90 Base) MCG/ACT Inhalation Aerosol Solution INHALE 2 PUFFS BY MOUTH EVERY 4 HRS NEEDED FOR WHEEZING Strength: 108 (90 BASE) MCG/ACT 36 g 5 Tadalafil 10 MG Oral Tablet Take 1 Tablet by mouth daily as needed for Erectile Dysfunction. 10 Tablet 0 Amoxicillin 500 MG Oral Capsule (Amoxil) Take 1 Capsule by mouth in the morning and 1 Capsule at noon and 1 Capsule before bedtime. Do all this for 7 days. 21 Capsule 0 Azithromycin 250 MG Oral Tablet (Zithromax Z-Cecil) Take two tablets by mouth on first day, then 1 tablet daily until gone 6 Tablet 0 predniSONE 10 MG Oral Tablet (Deltasone) Take 5 tabs for 2 days, 4 tabs for 2 days, 3 tabs for 2 days, 2 tabs for 2 days 1 tab for 2 days 30 Tablet 0 No current facility-administered medications for this visit. Review of patient's allergies indicates: Allergen Reactions Cats [Cat Dander] Edema airway Egg White [Egg White (Egg Protein)] Edema airway Tomato Edema airway Pollen Other (Please comment) Stuffy nose, itchy, watery eyes. Family History Problem Relation Name Age of Onset Cancer Grandmother (Maternal) breast Diabetes None Hypertension Grandfather (Maternal) Heart Disorder Grandfather (Maternal) GA at age 56 Stroke Grandfather (Maternal) ? Hypertension Mother Mental Disorder None OBJECTIVE BP 130/60 | Pulse 120 | Temp (!) 38.2 °C (100.8 °F) (Tympanic) | Resp 20 | Ht 1.727 m (5' 8") | Wt 88.7 kg (195 lb 8 oz) | SpO2 90% | BMI 29.73 kg/m² | BSA 2.06 m² Wt Readings from Last 1 Encounters: 12/15/24 88.7 kg (195 lb 8 oz) General Appearance: awake, alert, no apparent distress. +ill appearing. HEENT: perrl and eomi tms - clear, normal light reflex, no erythema oral pharynx clear, mucus membranes moist No sinus tenderness or facial pain to percussion No turbinate engorgement or discharge Neck: normal, supple, no adenopathy Respiratory: no wheezes, + rhonchi, and + crackles Heart: regular rhythm, no murmurs , no rubs, no gallops, and +tachycardia Skin: skin color, texture, turgor are normal, no rashes or significant lesions Patient Instructions [facility] l[facility]ama for Xray and labs. Start amoxicillin for a week. Zpack for 5 days. Start prednisone taper Albuterol as needed. Start a daily nasal spray such as Flonase, Nasacort, OR Nasonex. They work best if used consistently. In addition to one of these medicated nasal sprays use saline nasal spray to avoid dryness and thinout mucous Over the Counter (OTC) antihistamine (claritin, zyrtec, xyzal or francesca) can also be helpful for sinus symptoms. OTC decongestants: Sudafed, Mucinex-D (may have to get from behind pharmacy counter; you have to show your ID) can be used for nasal/sinus congestion for just a few days. If you have high blood pressure, you can use Coricidin. OTC cough suppressants as needed, including delsym, robitussin, cough drops, honey. Continue supportive measures: Increase clear, non-sugary fluid intake. Get plenty of rest Use a cool mist vaporizer or humidifier daily and you can take hot showers for steam therapy. Do warm salt water gargles and/or chloraseptic throat spray, throat lozenges (Cepacol) for any sorethroat. Honey, if not concerned about diabetes or elevated blood sugar levels, can also be very helpful forsorethroat. You may also use ibuprofen or acetaminophen OTC for relief of pain or fevers. If you had a negative rapid strep test, we will inform you if your PCR ("the send out") comes back positive, and start you on antibiotics. Otherwise, you may assume the PCR was also negative. If you had a viral swab (e.g. COVID, Flu, RSV, or otherwise), we will notify you if you test positive. If you do not hear from us, assume your test was negative. Follow up with PCP or return if no improvement in a week, or sooner if worse. Go to the ED if any severe symptoms appear acutely ASSESSMENT AND PLAN SOB (shortness of breath) (Primary) - albuterol-ipratropium (Duoneb) inhalation solution 3 mL - XR CHEST 2 VIEWS; Future; Expected date: 12/15/2024 - Amoxicillin 500 MG Oral Capsule (Amoxil); Take 1 Capsule by mouth in the morning and 1 Capsule atnoon and 1 Capsule before bedtime. Do all this for 7 days. - Azithromycin 250 MG Oral Tablet (Zithromax Z-Cecil); Take two tablets by mouth on first day, then 1tablet daily until gone - predniSONE 10 MG Oral Tablet (Deltasone); Take 5 tabs for 2 days, 4 tabs for 2 days, 3 tabs for 2 days, 2 tabs for 2 days 1 tab for 2 days - CBC WITH WBC DIFFERENTIAL; Future; Expected date: 12/15/2024 - COMPREHENSIVE METABOLIC PANEL; Future; Expected date: 12/15/2024 - D-DIMER; Future; Expected date: 12/15/2024 - TROPONIN T, HIGH SENSITIVITY; Future; Expected date: 12/15/2024 - RETURN TO WORK OR SCHOOL Hypoxia - albuterol-ipratropium (Duoneb) inhalation solution 3 mL - XR CHEST 2 VIEWS; Future; Expected date: 12/15/2024 - Amoxicillin 500 MG Oral Capsule (Amoxil); Take 1 Capsule by mouth in the morning and 1 Capsule atnoon and 1 Capsule before bedtime. Do all this for 7 days. - Azithromycin 250 MG Oral Tablet (Zithromax Z-Cecil); Take two tablets by mouth on first day, then 1tablet daily until gone - predniSONE 10 MG Oral Tablet (Deltasone); Take 5 tabs for 2 days, 4 tabs for 2 days, 3 tabs for 2days, 2 tabs for 2 days 1 tab for 2 days - CBC WITH WBC DIFFERENTIAL; Future; Expected date: 12/15/2024 - COMPREHENSIVE METABOLIC PANEL; Future; Expected date: 12/15/2024 - D-DIMER; Future; Expected date: 12/15/2024 - TROPONIN T, HIGH SENSITIVITY; Future; Expected date: 12/15/2024 - RETURN TO WORK OR SCHOOL Pneumonia of both lungs due to infectious organism, unspecified part of lung - Amoxicillin 500 MG Oral Capsule (Amoxil); Take 1 Capsule by mouth in the morning and 1 Capsule atnoon and 1 Capsule before bedtime. Do all this for 7 days. - Azithromycin 250 MG Oral Tablet (Zithromax Z-Cecil); Take two tablets by mouth on first day, then 1tablet daily until gone - predniSONE 10 MG Oral Tablet (Deltasone); Take 5 tabs for 2 days, 4 tabs for 2 days, 3 tabs for 2days, 2 tabs for 2 days 1 tab for 2 days - CBC WITH WBC DIFFERENTIAL; Future; Expected date: 12/15/2024 - COMPREHENSIVE METABOLIC PANEL; Future; Expected date: 12/15/2024 - D-DIMER; Future; Expected date: 12/15/2024 - TROPONIN T, HIGH SENSITIVITY; Future; Expected date: 12/15/2024 - RETURN TO WORK OR SCHOOL SpO2% at 90% on RA. S/P neb, SpO2% 93% on RA. With ambulation, SpO2% 90-91% Denies CP Marked rhonchi on exam bilat. Will start abx and steroids, as he has been using his inhaler much more than normal. Will r/o COVID, Flu, RSV Suspicious for mycoplasma. With no other cold/flu symptoms, and 2x family h/o VTE, will r/o PE as well. Little risk factors, however. Scoring Tools Results: PERC Score: 2Wells for PE score: 1.5 Follow Up: Return for Patient to follow up with Primary Care Provider as directed. | For: Patient to follow up with Primary Care Provider as directed Patient goals for plan of care were discussed Lucio Bardales PA-C [facility] [address] [facility] [place] [phone] documented in this encounter Nursing Notes * Barbara Lopez LPN - 12/15/2024 12:41 PM EDT EKG completed per provider's order. O2 2L applied via nasal cannula * Lena Plata LPN - 12/15/2024 11:47 AM EDT Administrations This Visit albuterol-ipratropium (Duoneb) inhalation solution 3 mL Admin Date 12/15/2024 Action Given Dose 3 mL Route Nebulizer Documented By Lena Plata LPN * Lena Plata LPN - 12/15/2024 11:38 AM EDT Roni Tran is a 44 year old male who presents to walk-in clinic today complaining of Chief Complaint Patient presents with Cold Symptoms Brief history:cold sx Onset/duration: 3 days. OTC treatments tried:mucinex, abdulaziz seltzer plus, ibuprofen Patient is accompanied by no one for today's visit. documented in this encounter Miscellaneous Notes * Addendum Note - Lucio Bardales PA-C - 12/15/2024 12:56 PM EDT Addended by: LUCIO BARDALES on: 12/15/2024 12:56 PM Modules accepted: Orders documented in this encounter Plan of Treatment Upcoming Encounters Date Type Department Care Team (Late st Contact Info) Description 12/15/2024 1:00 PM EDT Imaging Radiology [facility] [place] [address] [place] [phone] 09/16/2025 7:40 AM EST Office Visit Family [facility], Debbie [address] [phone] December, Sharan Beck MD [address] [place] [id number] Pending Results Name Type Priority Associated Diagnoses Date /Time INFLUENZA A/B RSV SARS-COV2,PCR Lab STAT SOB (shortness of breath) Hypoxia Pneumonia of both lungs due to infectious organism, unspecified part of lung 12/15/2024 12:34 PM EDT Scheduled Orders Name Type Priority Associated Diagnoses Orde r Schedule XR CHEST 2 VIEWS Medical Imaging STAT SOB (shortness of breath) Hypoxia Expected: 12/15/2024, Expires: 01/14/2025 CBC WITH WBC DIFFERENTIAL Lab Routine SOB (shortness of breath) Hypoxia Pneumonia of both lungs due to infectious organism, unspecified part of lung Expected: 12/15/2024, Expires: 12/15/2025 COMPREHENSIVE METABOLIC PANEL Lab Routine SOB (shortness of breath) Hypoxia Pneumonia of both lungs due to infectious organism, unspecified part of lung Expected: 12/15/2024, Expires: 12/15/2025 D-DIMER Lab Routine SOB (shortness of breath) Hypoxia Pneumonia of both lungs due to infectious organism, unspecified part of lung Expected: 12/15/2024, Expires: 12/15/2025 TROPONIN T, HIGH SENSITIVITY Lab Routine SOB (shortness of breath) Hypoxia Pneumonia of both lungs due to infectious organism, unspecified part of lung Expected: 12/15/2024, Expires: 12/15/2025 EKG EKG STAT SOB (shortness of breath) Hypoxia Pneumonia of both lungs due to infectious organism, unspecified part of lung Expected: 12/15/2024 (Approximate), Expires: 01/14/2026 Scheduled Procedures Name Priority Associated Diagnoses Date/Ti me COLONOSCOPY FLEXIBLE PROXIMA L DIAGNOSTIC Recall Special screening for malignant neoplasms, colon Health Maintenance Due Date Last Done Comments HIV Screening 1993 Albumin/Creatinine Ratio 1996 Hepatitis C Screening 1996 Hepatitis B Vaccine (1 of 3 - 19+ 3-dose series) 1997 Depression Screening 11/12/2015 11/11/2014 (Discussed) DTap/Tdap Vaccines (2 - Td o r Tdap) 02/27/2022 02/28/2012 Cologuard 2023 Colonoscopy 2023 Colorectal Cancer Screening 2023 Fecal Occult Blood Test 2023 Sigmoidoscopy 2023 COVID-19 Vaccine (1 - 2023-2 5 season) 2024 Influenza Vaccine (FLU shot) (Season Ended) 2025 GFR 10/11/2025 10/11/2024 Diabetes Screening 10/11/2027 10/11/2024, 10/11/2024, 12/11/2020 Lipid Panel 10/11/2029 10/11/2024, 12/11/2020, 11/13/2014 HPV (Gardasil) Vaccine Aged Out No lo nger eligible based on patient's age to complete this topic MENINGOCOCCAL (MENACTRA/MENVEO) Aged Out No longer eligible b ased on patient's age to complete this topic Meningitis B Vaccine (Bexsero/Trumemba) Aged Out No longer eligible b ased on patient's age to complete this topic Pneumococcal Vaccine: Pediatrics (0 to 5 Years) and At-Risk Patients (6 to 18 Years and 19+ Years) Aged Out No longer eligible based on patient's age to complete this topic documented as of this encounter Medical Devices Not on filedocumented as of this encounter Visit Diagnoses Diagnosis SOB (shortness of breath)- Primary Shortness of breath Hypoxia Hypoxemia Pneumonia of both lungs due to infectious organism, unspecified part of lung Nausea Nausea alone documented in this encounter Administered Medications Inactive Administered Medications - up to 3 most recent administrations Medication Order MAR Action Action Date Dose Rate Site albuterol-ipratropium (Duoneb) inhalation solution 3 mL 3 mL, Nebulizer, ONCE, On 12/15/24 at 1215, For 1 dose, 3 mL = 0.5 mg ipratropium/ 2.5 mg albuterolIndications:SOB (shortness of breath),Hypoxia Given 12/15/2024 11:46 AM EDT 3 mL ondansetron ODT (Zofran) tab 4 mg 4 mg, Oral, ONCE, On 12/15/24 at 1315, For 1 doseIndications:Nausea Given 12/15/2024 12:43 PM EDT 4 mg documented in this encounter Care Teams Train Operations Supervisor Relationship Specialty Start Date End Date December, Sharan Beck MD [address] [address] PCP - General Family Medicine 12/12/24 documented as of this encounter
--- OUTSIDE RECORDS SUMMARY | 2024-12-15 18:46 | External Medical Summary ---
Author Name Unknown Address Unknown Organization [id number]:LABORATORY [facility] [place] - [address] [place] [address] Laboratory Report Ordering Provider Test Date Status 10/11/2024 07:53:13 Final Observation Date Value Abnormality Reference (Units ) Status SYNC LEUKOCYTES IN BLOOD BY AUTOMATED COUNT 10/11/2024 07:53:13 11.21 Above high normal 4.00-10.80 (K/uL) Final Segs 10/11/2024 07:53:13 41.7 40.0-75.0 (%) Final Lymphs % 10/11/2024 07:53:13 39.8 18.0-42.0 (%) Final Monos 10/11/2024 07:53:13 9.2 1.0-11.0 (%) Final Eosinophils 10/11/2024 07:53:13 8.2 Above high normal 0.0-6.0 (%) Final Basos 10/11/2024 07:53:13 0.8 0.0-2.0 (%) Final Immature Granulocyte, Percent 10/11/2024 07:53:13 0.3 0.0-2.0 (%) Final Absolute Segs 10/11/2024 07:53:13 4.68 1.80-7.70 (K/uL) Final Lymphs, absolute 10/11/2024 07:53:13 4.46 1.00-4.80 (K/ul) Final Monos, Abs 10/11/2024 07:53:13 1.03 0.00-1.10 (K/uL) Final Eos, Abs 10/11/2024 07:53:13 0.92 Above high normal 0.00-0.70 (K/uL) Final Basos, Abs 10/11/2024 07:53:13 0.09 0.00-0.20 (K/uL) Final Immature Granulocytes, Number 10/11/2024 07:53:13 0.03 0.00-0.20 (K/uL) Final Performing Location LABORATORY [facility] [place] - [address] [facility] [address]
--- OUTSIDE RECORDS SUMMARY | 2024-12-15 18:46 | External Medical Summary ---
Author Name Unknown Address Unknown Organization [id number]:LABORATORY [facility] [place] - [address] [place] [address] Laboratory Report Ordering Provider Test Date Status 10/11/2024 07:53:13 Final Observation Date Value Abnormality Reference (Units ) Status WBC, Total 10/11/2024 07:53:13 11.21 Above high normal 4.00-10.80 (K/uL) Final RBC 10/11/2024 07:53:13 5.17 4.50-5.25 (M/uL) Final Hemoglobin 10/11/2024 07:53:13 15.8 14.0-16.8 (g/dL) Final HCT 10/11/2024 07:53:13 47.6 40.0-48.4 (%) Final MCV 10/11/2024 07:53:13 92.1 82.0-99.5 (fL) Final MCH 10/11/2024 07:53:13 30.6 27.0-34.0 (pg) Final MCHC 10/11/2024 07:53:13 33.2 32.0-36.0 (g/dL) Final RDW 10/11/2024 07:53:13 12.3 11.5-15.5 (%) Final Platelets 10/11/2024 07:53:13 224 140-400 (K/uL) Final MPV 10/11/2024 07:53:13 11.2 6.6-11.1 (fL) Final Nucleated erythrocytes/100 leukocytes [Ratio] in Blood by Automated count 10/11/2024 07:53:13 0 <=0 (/100 WBCs) Final Performing Location LABORATORY [facility] [place] - [address] [place] [address]
--- OUTSIDE RECORDS SUMMARY | 2024-12-15 18:46 | External Medical Summary | Summary of Care ---
Author Name Unknown Organization [facility] Address [address] [place] [address] Phone [phone] Care Team Providers Care Ocean Clam Boat Captain Name Role Phone Sergey Lindsay MD Primary Care Provider [phone] Reason for Visit * Reason Comments Outpatient Testing Encounter Details Date Type Department Care Team (Late st Contact Info) Description 11/01/2024 12:20 PM EST [facility] [address] [place] [address] [place], Laboratory [address] [place], [place] [id number] Cloudy urine Allergies Active Allergy Reactions Criticality Noted Date Comments Cat Dander Edema airway High 11/13/2014 Egg White (Egg Protein) Edema airway High 11/13/2014 Pollen Other (Please comment) 11/13/2014 Stuffy nose, itchy, watery eyes. Tomato Edema airway High 11/13/2014 documented as of this encounter (statuses as of 11/01/2024) Medications Saline Nasal [place] 0.65 % Nasal Solution ([place]) Administer 1 [place] into nostril as needed for Congestion. Active [...] BASE) MCG/ACT 36 g 5 5 Active Sildenafil Citrate 50 MG Oral TabletIndication s:Erectile dysfunction, unspecified erectile dysfunction type Take 1 Tablet by mouth daily as needed for Erectile Dysfunction. Take 1-4 hours prior to sex. 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 Allergic rhinitis 03/02/2013 Elevated blood pressure, situational 02/21/2012 Overweight (BMI 25.0-29.9) 09/08/2011 Overview (09/08/2011): BMI= 27.10 09/08/11 Epidermal inclusion cyst 09/08/2011 documented as of this encounter (statuses as of 11/01/2024) Resolved Problems Problem Noted Date Diagnosed Date [...] as of this encounter (statuses as of 11/01/2024) Immunizations Name Administration Dates Next Due TDAP [...] PM EDT documented as of this encounter Plan of Treatment Upcoming Encounters Date Type Department Care Team (Late st Contact Info) Description 09/16/2025 7:40 AM EST Office Visit Located [facility] [place] [address] [place] [phone] DecemberSharan MD [address] [place] [address] Pending Results Name Type Priority Associated Diagnoses Date /Time URINALYSIS, REFLEX TO CULTURE (NOT FOR NEUTROPENIC PATIENTS) Lab Routine Cloudy urine 11/01/2024 12:20 PM EST URINALYSIS, REFLEX TO CULTURE Lab Routine Cloudy urine 11/01/2024 12:20 PM EST Scheduled Procedures Name Priority Associated Diagnoses Date/Ti me COLONOSCOPY FLEXIBLE PROXIMA L DIAGNOSTIC Recall Special screening for malignant neoplasms, colon Health Maintenance Due Date Last Done Comments HIV Screening 1993 Albumin/Creatinine Ratio 1996 Hepatitis C Screening 1996 Hepatitis B Vaccine (1 of 3 - 19+ 3-dose series) 1997 Depression Screening 05/22/2020 05/22/2019, 11/11/2014 (Discussed) DTap/Tdap Vaccines (2 - Td o r Tdap) 02/27/2022 02/28/2012 Cologuard 2023 Colonoscopy 2023 Colorectal Cancer Screening 2023 Fecal Occult Blood Test 2023 Sigmoidoscopy 2023 COVID-19 Vaccine ( - 2023-2 5 season) 2024 Influenza Vaccine (FLU shot) (#1) 2024 GFR 10/11/2025 10/11/2024 Diabetes Screening 10/11/2027 10/11/2024, [...] Not on filedocumented as of this encounter Procedures Procedure Name Priority Date/Time Associated Diagnosis Comments URINALYSIS, REFLEX TO CULTURE (CUP ONLY) Routine 11/01/2024 12:20 PM EST Cloudy urine documented in this encounter Results * URINALYSIS, REFLEX TO CULTURE (CUP ONLY) (11/01/2024 12:20 PM EST) Urinalysis, Reflex to Culture Specimen Specimen collected and received 11/01/2024 2:02 PM EST [place] [facility] [place] Urine specimen obtained by clean catch procedure / Unknown Non-blood Collection / Unknown 11/01/2024 12:20 PM EST 11/01/2024 12:25 PM EST us Ronald Gonzalez MD LAB URINE ORDERABLES Fin al Result LABORATORY [facility] [address] [place] [address] documented in this encounter Visit Diagnoses Diagnosis Cloudy urine Other nonspecific finding on examination of urine documented in this encounter Care Teams Ocean Clam Boat Captain Relationship Specialty Start Date End Date Sergey Lindsay MD [address] [address] PCP - General Family Medicine 12/11/20 documented as of this encounter
--- OUTSIDE RECORDS SUMMARY | 2024-12-15 18:46 | External Medical Summary | Summary of Care ---
Author Name Unknown Organization [facility] Address [address] [facility] [place] [address] Phone [phone] Care Team Providers Care Account Advisor Name Role Phone Sharan Blanchard MD Primary Care Provider [phone] Reason for Visit * Reason Onset Date Comments Cold Symptoms Respiratory Infection 12/15/2024 Encounter Details Date Type Department Care Team (Latest Contact Info) Description 12/15/2024 11:30 AM EDT [facility] [address] [phone] Lucio Helm PA-C [address] [phone] SOB (shortness of breath)*; Hypoxia; Pneumonia of [...] (statuses as of 12/15/2024) Medications Saline Nasal [place] 0.65 % Nasal Solution ([place]) Administer 1 [place] into nostril as needed for Congestion. Active [...] encounter Patient Instructions * Patient Instructions* Lucio Helm PA-C - 12/15/2024 12:09 PM EDT Carrera's [...] in this encounter Progress Notes * Lucio Helm PA-C - 12/15/2024 12:10 PM EDT Nursing [...] Medications Medication Sig Dispense Refill Saline Nasal [place] 0.65 % Nasal Solution ([place]) Administer 1 [place] into nostril as needed for Congestion. Fluticasone [...] Hypertension Grandfather (Maternal) Heart Disorder Grandfather (Maternal) [place] at age 56 Stroke Grandfather (Maternal) ? [...] no rashes or significant lesions Patient Instructions Deandre'carlito lizama for Xray and labs. Start amoxicillin [...] for plan of care were discussed Lucio Helm PA-C [facility] [address] [facility] [phone] documented in this encounter Nursing Notes * [...] for today's visit. documented in this encounter Plan of Treatment Upcoming Encounters Date Type Department Care Team (Late st Contact Info) Description 12/15/2024 1:00 PM EDT Imaging Radiology [facility] 1st [facility] [place] [address] [place] [phone] 09/16/2025 7:40 AM EST Office Visit [facility] [address] [phone] December, Sharan Beck MD [address] [facility] [place] [address] Pending Results Name Type Priority Associated Diagnoses [...] mg documented in this encounter Care Teams Account Advisor Relationship Specialty Start Date End Date December, Sharan Beck MD [address] [facility] [place] [address] PCP - General Family Medicine 12/12/24 documented as of this encounter
--- OUTSIDE RECORDS SUMMARY | 2024-12-15 18:46 | External Medical Summary | Summary of Care ---
Author Name Unknown Organization [facility] Address [address] [facility] [place] [address] Phone [phone] Care Team Providers Care Follow Up Rep Name Role Phone Sharan Blanchard MD Primary Care Provider Reason for Visit * Reason Onset Date Comments Cold Symptoms Respiratory Infection 12/15/2024 Encounter Details Date Type Department Care Team (Latest Contact Info) Description 12/15/2024 11:30 AM EDT [facility] [address] [phone] Lucio Helm PA-C [address] [address] SOB (shortness of breath)*; Hypoxia; Pneumonia of [...] (statuses as of 12/15/2024) Medications Saline Nasal [place] 0.65 % Nasal Solution ([place]) Administer 1 [place] into nostril as needed for Congestion. Active [...] Medications Medication Sig Dispense Refill Saline Nasal [place] 0.65 % Nasal Solution ([place]) Administer 1 [place] into nostril as needed for Congestion. Fluticasone [...] Hypertension Grandfather (Maternal) Heart Disorder Grandfather (Maternal) [place] at age 56 Stroke Grandfather (Maternal) ? [...] of care were discussed Lucio Helm PA-C [facility] [address] [facility] [phone] documented in this encounter Nursing Notes * [...] Description 12/15/2024 1:00 PM EDT Imaging Radiology [facility] 1st [facility] [place] [address] [place] [phone] 09/16/2025 7:40 AM EST Office Visit [facility] [address] [phone] December, Sharan Beck MD [address] [facility] [place] [address] Pending Results Name Type Priority Associated Diagnoses [...] mg documented in this encounter Care Teams Follow Up Rep Relationship Specialty Start Date End Date December, Sharan Beck MD [address] [facility] [place] [address] PCP - General Family Medicine 12/12/24 documented as of this encounter
--- OUTSIDE RECORDS SUMMARY | 2024-12-15 18:46 | External Medical Summary | Summary of Care ---
Author Name Unknown Organization [facility] Address [address] [place] [address] Phone [phone] Care Team Providers Care Log Loader Helper Name Role Phone Sergey Lindsay MD Primary Care Provider Reason for Visit * Reason Comments Outpatient Testing Encounter Details Date Type Department Care Team (Late st Contact Info) Description 10/11/2024 7:50 AM EST Laboratory Laboratory, [facility] [address] [place] [address] [facility] Laboratory [address] [place] [address] Screening for diabetes mellitus; Screening for lipid disorders; Screening for deficiency anemia Allergies Active Allergy Reactions Criticality Noted Date Comments Cat Dander Edema airway High 11/13/2014 Egg White (Egg Protein) Edema airway High 11/13/2014 Pollen Other (Please comment) 11/13/2014 Stuffy nose, itchy, watery eyes. Tomato Edema airway High 11/13/2014 documented as of this encounter (statuses as of 10/11/2024) Medications Saline Nasal [place] 0.65 % Nasal Solution ([place]) Administer 1 [place] into nostril as needed for Congestion. 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 Allergic rhinitis 03/02/2013 Elevated blood pressure, situational 02/21/2012 Overweight (BMI 25.0-29.9) 09/08/2011 Overview (09/08/2011): BMI= 27.10 09/08/11 Epidermal inclusion cyst 09/08/2011 documented as of this encounter (statuses as of 10/11/2024) Resolved Problems Problem Noted Date Diagnosed Date [...] as of this encounter (statuses as of 10/11/2024) Immunizations Name Administration Dates Next Due TDAP (age 10 and older)(Boostrix) 02/28/2012 documented as of this encounter Social History Tobacco Use Types Packs/Day Years Used Date Smoking Tobacco: Former Cigarettes 0.5 4 0 11/28/2007 - 11/28/2011 Passive Smoke Exposure: Past Smokeless Tobacco: Former Snuff Quit: 07/05/2018 Comments:began at age 26, [place] tried to quit 2010 Alcohol Use Standard [...] Description 09/16/2025 7:40 AM EST [facility] [address] [phone] DecemberSharan MD [address] [address] Pending Results Name Type Priority Associated Diagnoses Date /Time COMPREHENSIVE METABOLIC PANEL Lab Routine Screening for diabetes mellitus 10/11/2024 7:53 AM EST LIPID PANEL WITH DIRECT LDL IF TG IS HIGH Lab Routine Screening for lipid disorders 10/11/2024 7:53 AM EST HEMOGLOBIN A1C Lab Routine Screening for diabetes mellitus 10/11/2024 7:53 AM EST CBC WITH WBC DIFFERENTIAL Lab Routine Screening for deficiency anemia 10/11/2024 7:53 AM EST CBC Lab Routine Screening for deficiency anemia 10/11/2024 7:53 AM EST DIFFERENTIAL, AUTOMATED Lab Routine Screening for deficiency anemia 10/11/2024 7:53 AM EST Scheduled Procedures Name Priority Associated Diagnoses Date/Ti me COLONOSCOPY FLEXIBLE PROXIMA L DIAGNOSTIC Recall Special screening for malignant neoplasms, colon Health Maintenance Due Date Last Done Comments GFR 1978 HIV Screening 1993 Albumin/Creatinine Ratio 1996 Hepatitis C Screening 1996 Hepatitis B Vaccine (1 of 3 - 19+ 3-dose series) 1997 Depression Screening 05/22/2020 05/22/2019, 11/11/2014 (Discussed) DTap/Tdap Vaccines (2 - Td o r Tdap) 02/27/2022 02/28/2012 Cologuard 2023 Colonoscopy 2023 Colorectal Cancer Screening 2023 Fecal Occult Blood Test 2023 Sigmoidoscopy 2023 Diabetes Screening 12/12/2023 12/11/2020 COVID-19 Vaccine (1 - 2023-2 5 season) 2024 Influenza Vaccine (FLU shot) (#1) 2024 Lipid Panel 12/11/2025 12/11/2020, 11/13/2014 HPV (Gardasil) Vaccine Aged Out [...] as of this encounter Visit Diagnoses Diagnosis Screening for diabetes mellitus Screening for lipid disorders Screening for deficiency anemia Screening for other and unspecified deficiency anemia documented in this encounter Care Teams Log Loader Helper Relationship Specialty Start Date End Date Sergey Lindsay MD PCP - General Family Medicine 12/11/20 documented as of this encounter
--- OUTSIDE RECORDS SUMMARY | 2024-12-15 18:46 | External Medical Summary | Summary of Care ---
Author Name Unknown Organization [facility] Address [address] [place] [address] Phone [phone] Care Team Providers Care Ballet Professor Name Role Phone Sergey Lindsay MD Primary Care Provider [phone] Reason for Visit * Reason Comments Flank Pain Concern for UTI Encounter Details Date Type Department Care Team (Late st Contact Info) Description 11/01/2024 11:20 AM EST Telemedicine General Internal Medicine [facility] [address] [place] [address] Ronald Gonzalez MD [address] [place] [address] Cloudy urine*; Left flank pain Allergies Active Allergy Reactions Criticality Noted Date Comments Cat Dander Edema airway High 11/13/2014 Egg White (Egg Protein) Edema airway High 11/13/2014 Pollen Other (Please comment) 11/13/2014 Stuffy nose, itchy, watery eyes. Tomato Edema airway High 11/13/2014 documented as of this encounter (statuses as of 11/01/2024) Medications Saline Nasal [place] 0.65 % Nasal Solution ([place]) Administer 1 [place] into nostril as needed for Congestion. Active [...] Past Smokeless Tobacco: Former Snuff Quit: 07/05/2018 Tobacco Cessation:Counseling Given: Not Answered Comments:began at age 26, last tried to quit 2010 Alcohol Use Standard [...] PM EDT documented as of this encounter Progress Notes * Ronald Gonzalez MD - 11/01/2024 11:26 AM EST Chief Complaint Patient presents with Flank Pain Concern for UTI SUBJECTIVE: Roni Tran is a 44 year old male with PMH as below who presents for acute. Started past week ortwo with left flank pain, into left groin/testicle. Thought maybe twisted it, was trying motrin. Got a sinus infection last weekend and had fever, but no fever since and sinus better. Last night had some cloudy urine ,but no severe pain and not purulent discharge or visible blood. Is hydrating Patient Active Problem List Diagnosis Overweight (BMI 25.0-29.9) Epidermal inclusion cyst Elevated blood pressure, situational Allergic rhinitis Male fertility problem Screening for cardiovascular condition Current Outpatient Medications Medication Sig Dispense Refill Saline Nasal [place] 0.65 % Nasal Solution ([place]) Administer 1 [place] into nostril as needed for Congestion. Fluticasone [...] 108 (90 BASE) MCG/ACT 36 g 5 Sildenafil Citrate 50 MG Oral Tablet Take 1 Tablet by mouth daily as needed for Erectile Dysfunction. Take 1-4 hours prior to sex. 10 Tablet 0 No current facility-administered medications for this visit. Review of patient's allergies indicates: Allergen Reactions Cats [Cat Dander] Edema airway Egg White [Egg White (Egg Protein)] Edema airway Tomato Edema airway Pollen Other (Please comment) Stuffy nose, itchy, watery eyes. Health Maintenance Due Topic Date Due HIV Screening Never done Albumin/Creatinine Ratio Never done Hepatitis C Screening Never done Hepatitis B Vaccine (1 of 3 - 19+ 3-dose series) Never done Depression Screening 05/22/2020 DTap/Tdap Vaccines (2 - Td or Tdap) 02/27/2022 Colorectal Cancer Screening Never done Influenza Vaccine (FLU shot) (1) Never done COVID-19 Vaccine (2023- season) Never done I reviewed social, PMH, PSH, and family history and updated where needed. Social History Socioeconomic History Marital status: Single Spouse name: Not on file Number of children: Not on file Years of education: Not on file Highest education level: Not on file Occupational History Not on file Tobacco Use Smoking status: Former Current packs/day: 0.00 Average packs/day: 0.5 packs/day for 4.0 years (2.0 ttl pk-yrs) Types: Cigarettes Start date: 11/28/2007 Quit date: 11/28/2011 Years since quittin.9 Passive exposure: Past Smokeless tobacco: Former Types: Snuff Quit date: 07/05/2018 Tobacco comments: began at age 26, last tried to quit 2010 Vaping Use Vaping status: Never Used Substance and Sexual Activity Alcohol use: Yes Comment: once a week Drug use: No Comment: little caffeine Sexual activity: Yes Partners: Female Comment: no problems Other Topics Concern Not on file Social History Narrative job: [employer] employer: [employer] education: Some college service: no hobbies/interests: Addition on house transfusions: No Tattoos- no exercise: work diet: no baptist/rastafarian: No preference marital status: November 2011 children: sond daughter/fiance with 2 boys- now total of 5 gc: 0 ggc: 0 pets: Cat exposure to violence/threats/abuse: no things to improve: education Social Needs Financial Resource Strain: Low Risk (08/31/2024) Financial Resource Strain Do you have any trouble paying for your medications, or do you think you might in the future? (Adult - for ages 18 years and over): No Does your family have trouble paying for medicine? (Household - for ages 0-17 years): Not on file Food Insecurity: No Food Insecurity (08/31/2024) Food Insecurity Worried About Running Out of Food in the Last Year: Never true Ran Out of Food in the Last Year: Never true Do you need food for this week? (Adult - for ages 18 years and over): No Transportation Needs: No Transportation Needs (08/31/2024) Transportation Needs Do you have trouble getting a ride to medical visits or work? (Adult - for ages 18 years and over):Not on file Does your family have a hard time getting a ride to doctors’ visits? (Household - for ages 0-17 years): Not on file Has lack of transportation kept you from medical appointments, meetings, work, or from getting things needed for daily living? Check all that apply. (Adult - for ages 18 years and over): No Do you (or your family) have trouble finding or paying for a ride (transportation)? (Household - for ages 0-17 years): Not on file Social Connections: Socially Integrated (08/31/2024) Social Connections How often do you feel lonely or isolated from those around you? (Adult - for ages 18 years and over): Sometimes Housing Stability: High Risk (08/31/2024) Housing Stability Do you currently live in a assisted or have no steady place to sleep at night? (Adult - for ages 18 years and over): Yes Do you think you are at risk of becoming homeless? (Adult - for ages 18 years and over): Not on file Does your family worry about paying for your home or becoming homeless? (Household - for ages 0-17 years): Not on file Are you homeless or worried that you might be in the future? (Adult - for ages 18 years and over): No Are you (or your family) homeless or worried that you might be in the future? (Household - for ages0-17 years): Not on file Past Medical History: Diagnosis Date Allergic rhinitis tested at age 21 grass, pollen, dust, cats, tomatos, mustard Chews tobacco 11/11/2014 Chickenpox age 3 Epiglottitis age 4 as a child Past Surgical History: Procedure Laterality Date VASECTOMY 12/06/2014 Family History Problem Relation Name Age of Onset Cancer Grandmother (Maternal) breast Diabetes None Hypertension Grandfather (Maternal) Heart Disorder Grandfather (Maternal) [place] at age 56 Stroke Grandfather (Maternal) ? Hypertension Mother Mental Disorder None OBJECTIVE: PHYSICAL EXAM: There were no vitals taken for this visit. General: alert, healthy, and no distress Lungs: normal respiratory rate and rhythm Psych: normal affect, no flight of ideas or tangential thought, good eye contact, no pressured speech I reviewed last gfr, lft ASSESSMENT: (R82.90) Cloudy urine (primary encounter diagnosis) (R10.9) Left flank pain PLAN: Cloudy urine (Primary) - URINALYSIS, REFLEX TO CULTURE (NOT FOR NEUTROPENIC PATIENTS); Future; Expected date: 11/01/2024 Check urine Will come in for ov if persistent pain Fluids discussed Signs to go to ER discussed Left flank pain As above Follow Up: Return if symptoms worsen or fail to improve, for Labs Today. | For: Labs Today Ronald Gonzalez MD documented in this encounter Nursing Notes * Lazara Murphy LPN - 11/01/2024 11:16 AM EST Patient says he thinks he may have a kidney infection or UTI. Started with mild lower back pain for a day or 2 then it started to radiate into his hip/groin and then into his left testicle. He pushed cranberry juice which he feels helped. Says then the pain came back and has been pretty constant. He has noticed that his urine appears more cloudy than usual. documented in this encounter Plan of Treatment Upcoming Encounters Date Type Department Care Team (Late st Contact Info) Description 09/16/2025 7:40 AM EST Office Visit Family [facility], Debbie Hoffman [address] [phone] Sharan Blanchard MD [address] [address] Pending Results Name Type Priority Associated Diagnoses Date /Time URINALYSIS, REFLEX TO CULTURE (NOT FOR NEUTROPENIC PATIENTS) Lab Routine Cloudy urine 11/01/2024 12:20 PM EST Scheduled Orders Name Type Priority Associated Diagnoses Orde r Schedule URINALYSIS, REFLEX TO CULTURE (NOT FOR NEUTROPENIC PATIENTS) Lab Routine Cloudy urine Expected: 11/01/2024, Expires: 11/01/2025 Scheduled Procedures Name Priority Associated Diagnoses Date/Ti [...] as of this encounter Visit Diagnoses Diagnosis Cloudy urine- Primary Other nonspecific finding on examination of urine Left flank pain Abdominal pain, unspecified site documented in this encounter Care Teams Ballet Professor Relationship Specialty Start Date End Date Sergey Lindsay MD [address] [address] PCP - General Family Medicine 12/11/20 documented as of this encounter"
--- OUTSIDE RECORDS SUMMARY | 2024-12-15 18:46 | External Medical Summary ---
Author Name Unknown Address Unknown Organization [id number]:[facility] [place] [address] [place] [address] Laboratory Report Ordering Provider Test Date Status 10/11/2024 07:53:13 Final Observation Date Value Abnormality Reference (Units ) Status BUN 10/11/2024 07:53:13 11 6-20 (mg/dL) Final Creatinine 10/11/2024 07:53:13 1.1 0.6-1.2 (mg/dL) Final Glomerular filtration rate/1.73 sq M.predicted [Volume Rate/Area] in Serum, Plasma or Blood by Creatinine-based formula (CKD-EPI) 10/11/2024 07:53:13 81 >=60 (mL/min) Final eGFR is calculated based on the CKD-EPI 2020 equation. Sodium 10/11/2024 07:53:13 141 135-146 (m mol/L) Final Potassium 10/11/2024 07:53:13 4.8 3.5-5.1 (m mol/L) Final Cl 10/11/2024 07:53:13 103 98-107 (mm ol/L) Final CO2 10/11/2024 07:53:13 30 22-32 (mmo l/L) Final Anion gap 10/11/2024 07:53:13 8 7-15 (mmol /L) Final Glucose 10/11/2024 07:53:13 88 70-120 (mg /dL) Final Albumin 10/11/2024 07:53:13 4.6 3.8-5.0 (g /dL) Final AST (Aspartate aminotransferase) 10/11/2024 07:53:13 34 10-50 (U/L) Fin al Alk Phos 10/11/2024 07:53:13 95 35-130 (U/ L) Final Bilirubin, Total 10/11/2024 07:53:13 0.5 <=1 .2 (mg/dL) Final Calcium 10/11/2024 07:53:13 10.2 8.4-10.2 ( mg/dL) Final Protein 10/11/2024 07:53:13 7.2 6.0-8.3 (g /dL) Final ALT (Alanine aminotransferase) 10/11/2024 07:53:13 79 Above high normal 10-50 (U/L) Final Performing Location [facility] [place] - [address] [facility] [address]
--- OUTSIDE RECORDS SUMMARY | 2024-12-15 18:46 | External Medical Summary | Summary of Care ---
Author Name Unknown Organization [facility] Address [address] [facility] [place] [address] Phone [phone] Care Team Providers Care Director Nurses' Registry Name Role Phone Sharan Blanchard MD Primary Care Provider [phone] Reason for Visit * Reason Onset Date Comments Cold Symptoms Respiratory Infection 12/15/2024 Encounter Details Date Type Department Care Team (Latest Contact Info) Description 12/15/2024 11:30 AM EDT [facility] [address] [phone] Lucio Helm PA-C [address] [address] SOB (shortness of breath)*; Hypoxia; Pneumonia of both lungs due to infectious organism, unspecified part of lung Allergies Active Allergy Reactions Criticality Noted Date Comments Cat Dander Edema airway High 11/13/2014 Egg White (Egg Protein) Edema airway High 11/13/2014 Pollen Other (Please comment) 11/13/2014 Stuffy nose, itchy, watery eyes. Tomato Edema airway High 11/13/2014 documented as of this encounter (statuses as of 12/15/2024) Medications Saline Nasal [place] 0.65 % Nasal Solution ([place]) Administer 1 [place] into nostril as needed for Congestion. Active [...] 3 mL NEBULIZER ONCE 12/15/2024 12/15/2024 Ended documented as of this encounter (statuses as [...] 08/31/2024 Does the household have a re lar source of income? (Household - for ages [...] Notes: Lena Plata LPN 12/15/24 1142 Signed PatrickCandi Tran is a 44 year old male [...] Route Nebulizer Documented By Lena Plata LPN Patrick Chelsea is a 44 year old male who [...] Medications Medication Sig Dispense Refill Saline Nasal [place] 0.65 % Nasal Solution ([place]) Administer 1 [place] into nostril as needed for Congestion. Fluticasone [...] Hypertension Grandfather (Maternal) Heart Disorder Grandfather (Maternal) [place] at age 56 Stroke Grandfather (Maternal) ? [...] rashes or significant lesions Patient Instructions Deandre's alda for Xray and labs. Start amoxicillin for [...] of care were discussed Lucio Helm PA-C [facility] [address] [facility] [phone] documented in this encounter Nursing Notes * Lena Plata LPN - 12/15/2024 11:47 [...] Description 12/15/2024 1:00 PM EDT Imaging Radiology [facility] 1st [facility] [place] [address] [place] [phone] 09/16/2025 7:40 AM EST Office Visit [facility] [place] Jayjayp[address] [place] [phone] December, Sharan Beck MD [address] [place] [address] Pending Results Name Type Priority Associated Diagnoses [...] to infectious organism, unspecified part of lung documented in this encounter Administered Medications Inactive Administered Medications - up to 3 most recent administrations Medication Order MAR Action Action Date Dose Rate Site albuterol-ipratropium (Duoneb) inhalation solution 3 mL 3 mL, Nebulizer, ONCE, On 12/15/24 at 1215, For 1 dose, 3 mL = 0.5 mg ipratropium/ 2.5 mg albuterolIndications:SOB (shortness of breath),Hypoxia Given 12/15/2024 11:46 AM EDT 3 mL documented in this encounter Care Teams Director Nurses' Registry Relationship Specialty Start Date End Date December, Sharan Beck MD [address] [address] PCP - General Family Medicine 12/12/24 documented as of this encounter
--- OUTSIDE RECORDS SUMMARY | 2024-12-15 18:46 | External Medical Summary ---
Author Name Unknown Address Unknown Organization K01[place] [facility] [place] [address] [facility] [address] Laboratory Report Ordering Provider Test Date Status GERMÁN,DOALTON 11/01/2024 12:20:47 Final Observation Date Value Abnormality Reference (Units ) Status Color of Urine by Auto 11/01/2024 12:20:47 Light Yellow Colorless, Light Yellow, Yellow, Dark Yellow Final Clarity, Urine 11/01/2024 12:20:47 Clear Clear Final Glucose [Mass/volume] in Urine by Automated test strip 11/01/2024 12:20:47 Negative Negative (mg/dL) Final Bilirubin.total [Presence] in Urine by Automated test strip 11/01/2024 12:20:47 Negative Negative Final Ketones [Mass/volume] in Urine by Automated test strip 11/01/2024 12:20:47 Negative Negative (mg/dL) Final Specific gravity, Urine 11/01/2024 12:20:47 1.014 1.003-1.030 Final Hemoglobin [Presence] in Urine by Automated test strip 11/01/2024 12:20:47 Negative Negative Final pH, Urine 11/01/2024 12:20:47 6.5 5.0-7.5 (Units) Final Protein [Mass/volume] in Urine by Automated test strip 11/01/2024 12:20:47 Negative Negative (mg/dL) Final Urobilinogen [Mass/volume] in Urine by Automated test strip 11/01/2024 12:20:47 Normal Normal (mg/dL) Final Nitrite [Presence] in Urine by Automated test strip 11/01/2024 12:20:47 Negative Negative Final Leukocyte esterase [Presence] in Urine by Automated test strip 11/01/2024 12:20:47 Negative Negative Final RBC, Urine 11/01/2024 12:20:47 0-2 0-2 (/HPF) Final WBC, Urine 11/01/2024 12:20:47 0-2 0-2 (/HPF) Final Bacteria [#/area] in Urine sediment by Microscopy high power field 11/01/2024 12:20:47 0-25 0-25 (/HPF) Final CULTURE, URINE - DEANN 11/01/2024 12:20:47 Final Culture not indicated by uri nalysis results\X09\ Performing Location [facility] [facility] [place] [facility] [address] [facility] [address]
--- OUTSIDE RECORDS SUMMARY | 2024-12-15 18:46 | External Medical Summary ---
Author Name Unknown Address Unknown Organization K01:[facility]ATORY [facility] - [address] [place] [address] Laboratory Report Ordering Provider Test Date Status 10/11/2024 07:53:13 Final Observation Date Value Abnormality Reference (Units ) Status HbA1C 10/11/2024 07:53:13 5.5 4.0-5.6 (% ) Final The use of HbA1c to monitor glycemic status is based on normal hemoglobin and HbA composition. This test should not be used in patients with abnormal hemoglobin that affects the half life of the red blood cell or the in vivo glycation rates. Glucose, estimated average 10/11/2024 07:53:13 111 <126 (mg/dL) Final Performing Location LABORATORY [facility] - [address] [place] [address]
--- OUTSIDE RECORDS SUMMARY | 2024-12-15 18:46 | External Medical Summary ---
Author Name Unknown Address Unknown Organization K01:[facility]ATORY [facility] - [address] [place] [address] Laboratory Report Ordering Provider Test Date Status YAMILET,10/11/2024 07:53:13 Final Observation Date Value Abnormality Reference (Units ) Status Triglyceride 10/11/2024 07:53:13 180 Above high normal <=174 (mg/dL) Final Triglyceride Reference Range s (mg/dL):
<150 Acceptable
150-174 Borderline high
175-499 High
>=500 Very high Cholesterol 10/11/2024 07:53:13 231 Above high normal <200 (mg/dL) Final Total Cholesterol Reference Ranges (mg/dL):
<200 Desirable
200-239 Borderline high
>=240 High HDL 10/11/2024 07:53:13 48 >39 (mg/dL ) Final HDL Cholesterol Reference Ra nges (mg/dL):
>=60 High (Desirable)
<50 Low (Undesirable) For Females
<40 Low (Undesirable) For Males NON-HDL CHOLESTEROL 10/11/2024 07:53:13 183 Above high normal <=159 (mg/dL) Final Non-HDL Cholesterol Referenc e Range (mg/dL):
<100 Target level for high risk ASCVD patient
<130 Optimal for general population
130-159 Near optimal for general population
160-189 Borderline High
190-219 High
>=220 Very High LDL, (calculated) 10/11/2024 07:53:13 147 Above high n ormal <=129 (mg/dL) Final LDL Cholesterol Reference Ra nges (mg/dL):
<70 Target level for high risk ASCVD patient
<100 Optimal for general population
100-129 Near optimal for general population
130-159 Borderline high
160-189 High
>=190 Very high Performing Location [facility] [place] [address] [facility] [address]
--- OUTSIDE RECORDS SUMMARY | 2024-12-15 18:46 | External Medical Summary | Summary of Care ---
Author Name Unknown Organization [facility] Address [address] [place] [address] Phone [phone] Care Team Providers Care Bus Dispatcher [place] Name Role Phone Sergey Lindsay MD Primary Care Provider [phone] Reason for Visit * Reason Comments Flank Pain Concern for UTI Encounter Details Date Type Department Care Team (Late st Contact Info) Description 11/01/2024 11:20 AM EST Telemedicine General Internal Medicine [facility] [address] [facility] [place] [address] Ronald Gonzalez MD [address] [facility] [place] [address] Cloudy urine*; Left flank pain Allergies Active Allergy Reactions Criticality Noted Date Comments Cat Dander Edema airway High 11/13/2014 Egg White (Egg Protein) Edema airway High 11/13/2014 Pollen Other (Please comment) 11/13/2014 Stuffy nose, itchy, watery eyes. Tomato Edema airway High 11/13/2014 documented as of this encounter (statuses as of 11/01/2024) Medications Saline Nasal [place] 0.65 % Nasal Solution ([place]) Administer 1 [place] into nostril as needed for Congestion. Active [...] Medications Medication Sig Dispense Refill Saline Nasal [place] 0.65 % Nasal Solution ([place]) Administer 1 [place] into nostril as needed for Congestion. Fluticasone [...] Not on file Social History Narrative job: [employer] employer: [employer] [facility] [employer] education: Some college service: no hobbies/interests: Addition on house transfusions: No Tattoos- no exercise: work diet: no adventism/bahai: No preference marital status: November 2011 children: [...] Stability Do you currently live in a intermediate or have no steady place to sleep [...] Hypertension Grandfather (Maternal) Heart Disorder Grandfather (Maternal) [place] at age 56 Stroke Grandfather (Maternal) ? [...] 09/16/2025 7:40 AM EST Office Visit Family [facility], Debbie Hoffman [address] [phone] Sharan Blanchard MD [address] [address] Pending Results Name Type Priority Associated Diagnoses [...] site documented in this encounter Care Teams Bus Dispatcher [place] Relationship Specialty Start Date End Date Sergey Lindsay MD [address] [address] PCP - General Family Medicine 12/11/20 documented as of this encounter"
--- OUTSIDE RECORDS SUMMARY | 2024-12-15 18:46 | External Medical Summary | Summary of Care ---
Author Name Unknown Organization [facility] Address [address] [facility] [place] [address] Phone [phone] Care Team Providers Care Physical Science Teacher Name Role Phone Sharan Blanchard MD Primary Care Provider [phone] Reason for Visit * Reason Onset Date Comments Cold Symptoms Respiratory Infection 12/15/2024 Encounter Details Date Type Department Care Team (Latest Contact Info) Description 12/15/2024 11:30 AM EDT [facility] [address] [phone] Lucio Helm PA-C [address] [address] SOB (shortness of breath)*; Hypoxia; Pneumonia of [...] (statuses as of 12/15/2024) Medications Saline Nasal [place] 0.65 % Nasal Solution ([place]) Administer 1 [place] into nostril as needed for Congestion. Active [...] Medications Medication Sig Dispense Refill Saline Nasal [place] 0.65 % Nasal Solution ([place]) Administer 1 [place] into nostril as needed for Congestion. Fluticasone [...] Hypertension Grandfather (Maternal) Heart Disorder Grandfather (Maternal) [place] at age 56 Stroke Grandfather (Maternal) ? [...] of care were discussed Lucio Helm PA-C [facility] [address] [facility] [phone] documented in this encounter Nursing Notes * [...] Description 12/15/2024 1:00 PM EDT Imaging Radiology [facility] [address]st [facility] [place] [address] [place] [phone] 09/16/2025 7:40 AM EST Office Visit [facility] Ze[address]ab Hoffman [address] [phone] December, Sharan Beck MD [address] [facility] [place] [address] Pending Results Name Type Priority Associated Diagnoses [...] mg documented in this encounter Care Teams Physical Science Teacher Relationship Specialty Start Date End Date December, Sharan Beck MD [address] [facility] [place] [address] PCP - General Family Medicine 12/12/24 documented as of this encounter
--- OUTSIDE RECORDS SUMMARY | 2024-12-15 18:46 | External Medical Summary | Summary of Care ---
Author Name Unknown Organization [facility] Address [address] [facility] [place] [address] Phone [phone] Care Team Providers Care Liberal Arts Teacher Name Role Phone Sharan Blanchard MD Primary Care Provider [phone] Reason for Visit * Reason Onset Date Comments Cold Symptoms Respiratory Infection 12/15/2024 Encounter Details Date Type Department Care Team (Latest Contact Info) Description 12/15/2024 11:30 AM EDT [facility] [address] [place] [phone] Lucio Helm PA-C [address] [place] [address] [phone] SOB (shortness of breath)*; Hypoxia; Pneumonia of [...] (statuses as of 12/15/2024) Medications Saline Nasal [place] 0.65 % Nasal Solution ([place]) Administer 1 [place] into nostril as needed for Congestion. Active [...] Route Frequency Start Date End Date Status ondansetron ODT (Zofran) tab 4 mgIndications:Nausea 4 mg OR ONCE 12/15/2024 12/16/2024 Acti ve albuterol-ipratropium (Duoneb) inhalation solution 3 mLIndications:SOB (shortness [...] Medications Medication Sig Dispense Refill Saline Nasal [place] 0.65 % Nasal Solution ([place]) Administer 1 [place] into nostril as needed for Congestion. Fluticasone [...] Hypertension Grandfather (Maternal) Heart Disorder Grandfather (Maternal) [place] at age 56 Stroke Grandfather (Maternal) ? [...] of care were discussed Lucio Helm PA-C [facility] [address] [facility] [phone] documented in this encounter Nursing Notes * [...] Description 12/15/2024 1:00 PM EDT Imaging Radiology [facility] [address] [facility] [place] [address] [place] [phone] 09/16/2025 7:40 AM EST Office Visit [facility] Zeinab Hoffman [address] [place] [phone] December, Sharan Beck MD [address] [facility] [place] [address] Pending Results Name Type Priority Associated Diagnoses [...] mL documented in this encounter Care Teams Liberal Arts Teacher Relationship Specialty Start Date End Date December, Sharan Beck MD [address] [facility] [place] [address] PCP - General Family Medicine 12/12/24 documented as of this encounter
--- OUTSIDE RECORDS SUMMARY | 2024-12-15 18:46 | External Medical Summary | Summary of Care ---
Author Name Unknown Organization [facility] Address [address] [facility] [place] [address] Phone [phone] Care Team Providers Care Weekday Babysitter Name Role Phone Sharan Blanchard MD Primary Care Provider [phone] Reason for Visit * Reason Onset Date Comments Cold Symptoms Respiratory Infection 12/15/2024 Encounter Details Date Type Department Care Team (Latest Contact Info) Description 12/15/2024 11:30 AM EDT [facility] [address] [phone] Lucio Helm PA-C [address] [place] [address] SOB (shortness of breath)*; Hypoxia; Pneumonia of [...] (statuses as of 12/15/2024) Medications Saline Nasal [place] 0.65 % Nasal Solution ([place]) Administer 1 [place] into nostril as needed for Congestion. Active [...] Notes: Lena Plata LPN 12/15/24 1142 Signed PatrickaCndi Tran is a 44 year old male [...] Medications Medication Sig Dispense Refill Saline Nasal [place] 0.65 % Nasal Solution ([place]) Administer 1 [place] into nostril as needed for Congestion. Fluticasone [...] Hypertension Grandfather (Maternal) Heart Disorder Grandfather (Maternal) [place] at age 56 Stroke Grandfather (Maternal) ? [...] of care were discussed Lucio Helm PA-C [facility] [address] [facility] [phone] documented in this encounter Nursing Notes * [...] Description 12/15/2024 1:00 PM EDT Imaging Radiology [facility] [address]st [facility] [place] [address] [place] [phone] 09/16/2025 7:40 AM EST Office Visit [facility] [place] Zeinab [address] [address] [phone] December, Sharan Beck MD [address] [place] [address] Scheduled Orders Name Type Priority Associated Diagnoses [...] part of lung Expected: 12/15/2024, Expires: 12/15/2025 INFLUENZA A/B RSV SARS-COV2,PCR Lab STAT SOB (shortness of breath) Hypoxia Pneumonia of both lungs due to infectious organism, unspecified part of lung Ordered: 12/15/2024 Scheduled Procedures Name Priority Associated Diagnoses Date/Ti [...] mL documented in this encounter Care Teams Weekday Babysitter Relationship Specialty Start Date End Date December, Sharan Beck MD [address] [facility] [place] [address] PCP - General Family Medicine 12/12/24 documented as of this encounter
--- OUTSIDE RECORDS SUMMARY | 2024-12-15 18:46 | External Medical Summary | Summary of Care ---
Author Name Unknown Organization [facility] [address] [address] Phone [phone] Care Team Providers Care Double End Tenoner Operator Name Role Phone Sergey Lindsay MD Primary Care Provider [phone] Encounter Details Date Type Department Care Team (Late st Contact Info) Description 09/18/2024 Orders Only PATIENT PORTAL DO NOT DELETE THIS DEPT USED BY [place] [id number] Allergies Active Allergy Reactions Criticality Noted Date Comments Cat Dander Edema airway High 11/13/2014 Egg White (Egg Protein) Edema airway High 11/13/2014 Pollen Other (Please comment) 11/13/2014 Stuffy nose, itchy, watery eyes. Tomato Edema airway High 11/13/2014 documented as of this encounter (statuses as of 09/18/2024) Medications Saline Nasal [place] 0.65 % Nasal Solution ([place]) Administer 1 [place] into nostril as needed for Congestion. 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 Allergic rhinitis 03/02/2013 Elevated blood pressure, situational 02/21/2012 Overweight (BMI 25.0-29.9) 09/08/2011 Overview (09/08/2011): BMI= 27.10 09/08/11 Epidermal inclusion cyst 09/08/2011 documented as of this encounter (statuses as of 09/18/2024) Resolved Problems Problem Noted Date Diagnosed Date [...] as of this encounter (statuses as of 09/18/2024) Immunizations Name Administration Dates Next Due TDAP (age 10 and older)(Boostrix) 02/28/2012 documented as of this encounter Social History Tobacco Use Types Packs/Day Years Used Date Smoking Tobacco: Former Cigarettes 0.5 4 0 11/28/2007 - 11/28/2011 Passive Smoke Exposure: Past Smokeless Tobacco: Former Snuff Quit: 07/05/2018 Comments:began at age 26, kristen nolan tried to quit 2010 Alcohol Use Standard [...] ages 0-17 years) Not on file 08/31/2024 Sex and Gender Information Value Date Recorded Sex Assigned at Male 02/02/2019 2:40 PM EDT Legal Sex Male 6:56 AM EST Gender Identity Male 02/02/2019 2:40 PM EDT Sexual Orientation Straight 02/02/2019 2: 40 PM EDT documented as of this encounter Plan of Treatment Upcoming Encounters Date Type Department Care Team (Late st Contact Info) Description 09/16/2025 7:40 AM EST Office Visit [facility] Clarkiaann Hoffman [address] [place] [address] [phone] December, Sharan Beck MD [address] [place] [address] Scheduled Procedures Name Priority Associated Diagnoses Date/Ti [...] Not on filedocumented as of this encounter Care Teams Double End Tenoner Operator Relationship Specialty Start Date End Date Sergey Lindsay MD PCP - General Family Medicine 12/11/20 documented as of this encounter
--- OUTSIDE RECORDS SUMMARY | 2024-12-15 18:46 | External Medical Summary | Summary of Care ---
Author Name Unknown Organization [facility] Address [address] [facility] [place] [address] Phone [phone] Care Team Providers Care Skimmer Reverberatory Name Role Phone Sharan Blanchard MD Primary Care Provider [phone] Reason for Visit * Reason Onset Date Comments Cold Symptoms Respiratory Infection 12/15/2024 Encounter Details Date Type Department Care Team (Latest Contact Info) Description 12/15/2024 11:30 AM EDT [facility] [address] [address] [phone] Lucio Helm PA-C [address] [place] [address] [address] SOB (shortness of breath)*; Hypoxia; Pneumonia of [...] (statuses as of 12/15/2024) Medications Saline Nasal [place] 0.65 % Nasal Solution ([place]) Administer 1 [place] into nostril as needed for Congestion. Active [...] Medications Medication Sig Dispense Refill Saline Nasal [place] 0.65 % Nasal Solution ([place]) Administer 1 [place] into nostril as needed for Congestion. Fluticasone [...] of care were discussed Lucio Helm PA-C [facility] [address] [facility] [phone] documented in this encounter Nursing Notes * [...] Description 12/15/2024 1:00 PM EDT Imaging Radiology [facility] [facility] [place] [address] [place] [phone] 09/16/2025 7:40 AM EST Office Visit [facility] [place] Zeinab [address] [place] [phone] December, Sharan Beck MD [address] [place] [address] Scheduled Orders Name Type Priority Associated Diagnoses [...] organism, unspecified part of lung Ordered: 12/15/2024 EKG EKG STAT SOB (shortness of breath) [...] mL documented in this encounter Care Teams Skimmer Reverberatory Relationship Specialty Start Date End Date December, Sharan Beck MD [address] [place] [address] PCP - General Family Medicine 12/12/24 documented as of this encounter
--- OUTSIDE RECORDS SUMMARY | 2024-12-15 18:47 | External Medical Summary | Summary of Care ---
Author Name Unknown Organization [facility] Address [address] [place] [address] Phone [phone] Care Team Providers Care Schedule Supervisor Name Role Phone Sergey Lindsay MD Primary Care Provider [phone] Reason for Visit * Reason Onset Date Comments Medication Refill 08/29/2024 Encounter Details Date Type Department Care Team (Late st Contact Info) Description 08/29/2024 Refill [facility] [address] [facility] [place] [phone] DecemberYamilet MD [address] [facility] [place] [phone] Allergic rhinitis, unspecified seasonality, unspecified trigger; Chronic cough; Wheeze Allergies Active Allergy Reactions Criticality Noted Date Comments Cat Dander Edema airway High 11/13/2014 Egg White (Egg Protein) Edema airway High 11/13/2014 Pollen Other (Please comment) 11/13/2014 Stuffy nose, itchy, watery eyes. Tomato Edema airway High 11/13/2014 documented as of this encounter (statuses as of 08/31/2024) Medications Budesonide 90 MCG/ACT Inhalation Aerosol Powder Breath Activated (Pulmicort Flexhaler)Indica tions:Moderate persistent asthma with acute exacerbation Inhale 1 Puff by mouth in the morning and 1 Puff before bedtime. 1 Each 3 4 Active Saline Nasal [place] 0.65 % Nasal Solution ([place]) Administer 1 [place] into nostril as needed for Congestion. Active [...] FOR WHEEZING Strength: 108 (90 BASE) MCG/ACT 18 g 5 5 Active Montelukast Sodium 10 MG Oral Tablet (Singulair)Indic ations:Allergic rhinitis, unspecified seasonality, unspecified trigger TAKE 1 TABLET BY MOUTH EVERYDAY AT BEDTIME Strength: 10 mg 90 Tablet 3 4 025 Discontin ued(Refil l) Albuterol Sulfate HFA 108 (90 Base) MCG/ACT Inhalation Aerosol SolutionIndicati ons:Chronic cough,Wheeze INHALE 2 PUFFS BY MOUTH EVERY 4 HRS NEEDED FOR WHEEZING Strength: 108 (90 BASE) MCG/ACT 18 g 5 4 025 Discontin ued(Refil l) documented as of this encounter (statuses as of 08/31/2024) Active Problems Problem Noted Date Diagnosed Date Screening for cardiovascular condition 5 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 Allergic rhinitis 03/02/2013 Elevated blood pressure, situational 02/21/2012 Overweight (BMI 25.0-29.9) 09/08/2011 Overview (09/08/2011): BMI= 27.10 09/08/11 Epidermal inclusion cyst 09/08/2011 documented as of this encounter (statuses as of 08/31/2024) Resolved Problems Problem Noted Date Diagnosed Date [...] as of this encounter (statuses as of 08/31/2024) Immunizations Name Administration Dates Next Due TDAP [...] 05/22/2019 Hunger Vital Sign Answer Date Recorded Worried About Running Out of Food in the Last Ye ar Never true 06/25/2020 Ran Out of Food in the Last Year Never true 06/25/2020 Utilities Answer Date Recorded Do you have trouble paying y our heating, water, or electric bill? (Adult - for ages 18 years and over) Not on file 02/14/2024 Is your family able to pay t he heat, water, or electric bill? (Household - for ages 0-17 years) Not on file 02/14/2024 Does your family have access to good internet? (Household - for ages 0-17 years) Not on file 02/14/2024 Social Connections Answer Date Recorded How often do you feel lonely or isolated from those around you? (Adult - for ages 18 years and over) Not on file 02/14/2024 Sex and Gender Information Value Date Recorded Sex Assigned at Male 02/02/2019 2:40 PM EDT Legal Sex Male 6:56 AM EST Gender Identity Male 02/02/2019 2:40 PM EDT Sexual Orientation Straight 02/02/2019 2: 40 PM EDT documented as of this encounter Miscellaneous Notes * Telephone Encounter - Connor Gilman [facility] - 08/31/2024 8:40 AM EST Signed Prescriptions: Disp Refills Montelukast Sodium 10 MG Oral Tablet (Sing*90 Tab*1 Sig: TAKE 1 TABLET BY MOUTH EVERYDAY AT BEDTIME Strength: 10 mgAuthorizing Provider: YAMILET HUGHES User: CONNOR GILMAN Albuterol Sulfate HFA 108 (90 Base) MCG/AC*18 g 5 Sig: INHALE 2 PUFFS BY MOUTH EVERY 4 HRS NEEDED FOR WHEEZING Strength: 108 (90 BASE) MCG/ACTAuthorizing Provider: YAMILET HUGHES User: CONNOR GILMAN documented in this encounter Plan of Treatment Upcoming Encounters Date Type Department Care Team (Late st Contact Info) Description 09/14/2024 2:00 PM EST Office Visit [facility] Zeinab [address] [phone] DecemberYamilet MD [address] [place] [address] Scheduled Procedures Name Priority Associated Diagnoses Date/Ti me COLONOSCOPY FLEXIBLE PROXIMA L DIAGNOSTIC Recall Special screening for malignant neoplasms, colon Health Maintenance Due Date Last Done Comments GFR 1978 HIV Screening 1993 Albumin/Creatinine Ratio 1996 Hepatitis C Screening 1996 Hepatitis B Vaccine (1 of 3 - 19+ 3-dose series) 1997 Pneumococcal Vaccine: Pediatrics (0 to 5 Years) and At-Risk Patients (6 to 18 Years and 19+ Years) (1 of 2 - PCV) 1997 Depression Screening 05/22/2020 05/22/2019, 11/11/2014 (Discussed) DTap/Tdap Vaccines (2 - Td o r Tdap) 02/27/2022 02/28/2012 Cologuard 2023 Colonoscopy 2023 Colorectal Cancer Screening 2023 Fecal Occult Blood Test 2023 Sigmoidoscopy 2023 Diabetes Screening 12/12/2023 12/11/2020 COVID-19 Vaccine ( - 2023-2 5 season) [...] as of this encounter Visit Diagnoses Diagnosis Allergic rhinitis, unspecified seasonality, unspecified trigger Chronic cough Cough Wheeze Wheezing documented in this encounter Care Teams Schedule Supervisor Relationship Specialty Start Date End Date Sergey Lindsay MD PCP - General Family Medicine 12/11/20 documented as of this encounter
--- OUTSIDE RECORDS SUMMARY | 2024-12-15 18:47 | External Medical Summary | Summary of Care ---
Author Name Unknown Organization [facility] Address [address] [place] [address] Phone [phone] Care Team Providers Care Talk Show Host Name Role Phone Sergey Lindsay MD Primary Care Provider [phone] Reason for Referral * Ancillary Services (Within 10 days (routine)) - Authorized Specialty Diagnoses / Procedures Referred By Contkaity t Referred To Contact Gastroenterology Diagnoses Colon cancer screening Sharan Blanchard MD [address] [address] Phone: tel: fax: Referral ID Status Reason Start Date Expiration Date Visits Requested Visits Authorized [id number] Authorized Ancillary Services Required 09/14/[phone] Question Answer Referral Priority Within 10 days (routine) Where should this appointment be scheduled? [facility] Comments ALERT: Do not order for pediatric patients (18 years or younger). Cancel off screen and order PEDS GASTROENTEROLOGY CONSULT (Type: 1 visit only-Evaluate and Treat) The following Pt. Instructions are available: - Gastro Colonoscopy Prep Instructions [02089] - Gastro Colonoscopy Prep Instructions (French Version) [98509] Go to the Pt. Instructions section within the Visit Navigator to access. Colonoscopy ASGE Guidelines: Average risk screening (begin at age 50, 10 year intervals) ADDITIONAL INFORMATION 1. Is the patient on Coumadin? No 2. Is the patient on Pradaxa? No Reason for Visit * Reason Comments Physical-Exam Encounter Details Date Type Department Care Team ([facility] Contact Info) Description 09/14/2024 2:00 PM EST [facility] [address] [phone] Sharan Blanchard MD [address] [place] [id number] Colon cancer screening*; Chronic cough; Wheeze; Erectile dysfunction, unspecified erectile dysfunction type; Screening for diabetes mellitus; Screening for lipid disorders; Screening for deficiency anemia; Encounter for routine preventive care for patient older than 28 days Allergies Active Allergy Reactions Criticality Noted Date Comments Cat Dander Edema airway High 11/13/2014 Egg White (Egg Protein) Edema airway High 11/13/2014 Pollen Other (Please comment) 11/13/2014 Stuffy nose, itchy, watery eyes. Tomato Edema airway High 11/13/2014 documented as of this encounter (statuses as of 09/14/2024) Medications Saline Nasal [place] 0.65 % Nasal Solution ([place]) Administer 1 [place] into nostril as needed for Congestion. Active [...] prior to sex. 10 Tablet 5 Active Budesonide 90 MCG/ACT Inhalation Aerosol Powder Breath Activated (Pulmicort Flexhaler)Indica tions:Moderate persistent asthma with acute exacerbation Inhale 1 Puff by mouth in the morning and 1 Puff before bedtime. 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 Allergic rhinitis 03/02/2013 Elevated blood pressure, situational 02/21/2012 Overweight (BMI 25.0-29.9) 09/08/2011 Overview (09/08/2011): BMI= 27.10 09/08/11 Epidermal inclusion cyst 09/08/2011 documented as of this encounter (statuses as of 09/14/2024) Resolved Problems Problem Noted Date Diagnosed Date [...] as of this encounter (statuses as of 09/14/2024) Immunizations Name Administration Dates Next Due TDAP [...] Sign Reading Time Taken Comments Blood Pressure 118/80 09/14/2024 2:03 PM EST Pulse 76 09/14/2024 2:03 PM EST Temperature 36.9 °C (98.5 °F) 09/14/2024 2:03 PM ES T Respiratory Rate 16 09/14/2024 2:03 PM EST Oxygen Saturation - - Inhaled Oxygen Concentration - - Weight 91.2 kg (201 lb) 09/14/2024 2:03 PM EST Height 174 cm (5' 8.5") 09/14/2024 2:03 PM EST Body Mass Index 30.12 09/14/2024 2:03 PM EST documented in this encounter Progress Notes * Sharan Blanchard MD - 09/14/2024 2:12 PM EST Images from the original note were not included. Subjective Peter Tran is a 44 year old male that presents for Physical-Exam History of Present Illness A 44-year-old male with a past medical history of obesity presents for a yearly physical. The patient reports a slight weight gain of approximately four pounds over the past year, which he attributesto aging and possibly genetic factors. He expresses a desire to lose weight and aims to reach a target weight of around 180 pounds. The patient is considering dietary changes and exercise to achieve t his goal. In addition to weight concerns, the patient reports a decrease in sex drive, which he believes may be related to his current marital separation. He is considering the use of sildenafil (Viagra) to address this issue. The patient also discusses ongoing respiratory issues. He uses an albuterol inhaler and has tried Pulmicort in the past, but discontinued it due to perceived side effects. The patient reports occasional chest tightness and wheezing, but no associated cough. He has tried various interventions, including the use of a humidifier and an herbal supplement, with limited success. Did not complete colonoscopy in last year. Agreeable. Discussed recommendation for flu, covid, tetanus shot. Recommend screening lab work. Objective Vitals: 09/14/24 1403 Temp: 98.5 °F (36.9 °C) Pulse: 76 Resp: 16 BP: 118/80 BMI: 30.11 Physical Exam CHEST: Scattered wheezes upon auscultation. EXTREMITIES: No leg swelling. I have reviewed the following results: Results Assessment and Plan Assessment & Plan Obesity Weight gain of 4 pounds over the past year. Discussed the importance of diet and portion control inweight loss. Patient expressed a goal to lose weight and reach a target of 180 pounds. -Encouraged a calorie deficit of about 500 calories per day for a healthy weight loss of about 1 pound per week. -Recommended using a food scale to understand portion sizes and track calorie intake. Asthma Patient reports occasional chest tightness and wheezing. Currently using Albuterol as needed and has stopped using Pulmicort. -Continue Albuterol as needed. -Consider restarting Pulmicort if symptoms persist. Erectile Dysfunction Patient expressed concern about decreased sex drive, possibly related to current marital issues. -Prescribe Sildenafil (Viagra), 10 tablets to be taken 1 hour to 4 hours before sexual activity as needed. General Health Maintenance -Order basic screening lab work to check kidney function, liver function, and blood lipids. Patientto fast for 10 hours prior to lab work. -Schedule colonoscopy for colon cancer screening. -Check tetanus immunization status. Last documented tetanus shot was in 2011. - recommend following with dentistry and optometry -sunscreen when exposed, seatbelts always Colon cancer screening (Primary) - COLONOSCOPY, GI REFERRAL OP Chronic cough - Albuterol Sulfate HFA 108 (90 Base) MCG/ACT Inhalation Aerosol Solution; INHALE 2 PUFFS BY MOUTH EVERY 4 HRS NEEDED FOR WHEEZING Strength: 108 (90 BASE) MCG/ACT Wheeze - Albuterol Sulfate HFA 108 (90 Base) MCG/ACT Inhalation Aerosol Solution; INHALE 2 PUFFS BY MOUTH EVERY 4 HRS NEEDED FOR WHEEZING Strength: 108 (90 BASE) MCG/ACT Erectile dysfunction, unspecified erectile dysfunction type - Sildenafil Citrate 50 MG Oral Tablet; Take 1 Tablet by mouth daily as needed for Erectile Dysfunction. Take 1-4 hours prior to sex. Screening for diabetes mellitus - COMPREHENSIVE METABOLIC PANEL; Future; Expected date: 09/14/2024 - HEMOGLOBIN A1C; Future; Expected date: 09/14/2024 Screening for lipid disorders - LIPID PANEL WITH DIRECT LDL IF TG IS HIGH; Future; Expected date: 09/14/2024 Screening for deficiency anemia - CBC WITH WBC DIFFERENTIAL; Future; Expected date: 09/14/2024 Encounter for routine preventive care for patient older than 28 days Wrap-Up Follow Up: Return in about 1 year (around 09/14/2025) for yearly physical. | For: yearly physical Text in this note was generated using an [employer] service. I discussed the use of a device to record and summarize our discussion today. All persons present during the encounter consented to its use. documented in this encounter Nursing Notes * Zahra Dumont LPN - 09/14/2024 2:03 PM EST The patient has been properly identified by confirmation of name and date of . Chief Complaint Patient presents with Physical-Exam documented in this encounter Plan of Treatment Upcoming Encounters Date Type Department Care Team (Late st Contact Info) Description 09/16/2025 7:40 AM EST Office [facility] [address] [phone] Sharan Blanchard MD [address] [facility] [address] [place] [address] Scheduled Orders Name Type Priority Associated Diagnoses Orde r Schedule COMPREHENSIVE METABOLIC PANEL Lab Routine Screening for diabetes mellitus Expected: 09/14/2024 (Approximate), Expires: 09/14/2025 LIPID PANEL WITH DIRECT LDL IF TG IS HIGH Lab Routine Screening for lipid disorders Expected: 09/14/2024, Expires: 09/14/2025 HEMOGLOBIN A1C Lab Routine Screening for diabetes mellitus Expected: 09/14/2024 (Approximate), Expires: 09/14/2025 CBC WITH WBC DIFFERENTIAL Lab Routine Screening for deficiency anemia Expected: 09/14/2024 (Approximate), Expires: 09/14/2025 Scheduled Procedures Name Priority Associated Diagnoses Date/Ti me COLONOSCOPY FLEXIBLE PROXIMA L DIAGNOSTIC Recall Special screening for malignant neoplasms, colon Scheduled Referrals Name Type Priority Associated Diagnoses Orde r Schedule COLONOSCOPY, GI REFERRAL OP Referral Within 10 days (routine) Colon cancer screening Ordered: 09/14/2024 Health Maintenance Due Date Last Done Comments [...] as of this encounter Visit Diagnoses Diagnosis Colon cancer screening- Primary Special screening for malignant neoplasms, colon Chronic cough Cough Wheeze Wheezing Erectile dysfunction, unspecified erectile dysfunction type Screening for diabetes mellitus Screening for lipid disorders Screening for deficiency anemia Screening for other and unspecified deficiency anemia Encounter for routine preventive care for patient older than 28 days documented in this encounter Care Teams Talk Show Host Relationship Specialty Start Date End Date Sergey Lindsay MD PCP - General Family Medicine 12/11/20 documented as of this encounter
[2024-12-15 18:59] LABS: Ferritin 30.4 ng/ml (8-388)
[2024-12-15] MEDS: SODIUM CHLORIDE 0.9% 1,000 ML IV SCH (19:22)
[2024-12-15 19:25] LABS: Folate (Folic Acid),Ser orPlas 15.18 ng/ml (>5.38)
[2024-12-15] MEDS: ENOXAPARIN INJ 40 MG/0.4 ML SYR SQ SCH (19:25)
[2024-12-15] MEDS: guaiFENesin 600 MG TABCR PO SCH (19:26)
[2024-12-15] MEDS: MONTELUKAST SODIUM 10 MG TABLET PO SCH (19:26)
--- OUTSIDE RECORDS SUMMARY | 2024-12-15 19:49 | External Medical Summary | Summary of Care ---
Author Name Unknown Organization [facility] Address [address] [facility] [address] [place] [address] Phone [phone] Care Team Providers Care Project Archivist Name Role Phone Sharan Blanchard MD Primary Care Provider [phone] Reason for Visit * Reason Onset Date Comments Cold Symptoms Respiratory Infection 12/15/2024 Encounter Details Date Type Department Care Team (Latest Contact Info) Description 12/15/2024 11:30 AM EDT [facility] [address] [phone] Lucio Bardales PA-C [address] [phone] SOB (shortness of breath)*; Hypoxia; Pneumonia of [...] (statuses as of 12/15/2024) Medications Saline Nasal [place] 0.65 % Nasal Solution ([place]) Administer 1 [place] into nostril as needed for Congestion. Active [...] Medications Medication Sig Dispense Refill Saline Nasal [place] 0.65 % Nasal Solution ([place]) Administer 1 [place] into nostril as needed for Congestion. Fluticasone [...] of care were discussed Lucio Bardales PA-C [facility] [facility] [place] [phone] documented in this encounter Nursing Notes * [...] Description 09/16/2025 7:40 AM EST Office Visit [facility] [address] [phone] DecemberSharan MD [address] [address] Pending Results Name Type Priority Associated Diagnoses [...] Blood Test 2023 Sigmoidoscopy 2023 COVID-19 Vaccine (2023-2 5 season) 2024 Influenza Vaccine (FLU shot) [...] mg documented in this encounter Care Teams Project Archivist Relationship Specialty Start Date End Date December, Sharan Beck MD [address] [address] PCP - General Family Medicine 12/12/24 documented as of this encounter
[2024-12-15] MEDS: LEVALBUTEROL HCL 0.63 MG/3 ML NEB NEB SCH (19:50)
--- OUTSIDE RECORDS SUMMARY | 2024-12-15 19:50 | External Medical Summary | Summary of Care ---
Author Name Unknown Organization [facility] Address [address] [facility] [address] [place] [address] Phone [phone] Care Team Providers Care Clamp Forklift Operator Name Role Phone Sharan Blanchard MD Primary Care Provider [phone] Reason for Visit * Reason Onset Date Comments Cold Symptoms Respiratory Infection 12/15/2024 Encounter Details Date Type Department Care Team (Latest Contact Info) Description 12/15/2024 11:30 AM EDT [facility] [address] [phone] Lucio Bardales PA-C [address] [phone] SOB (shortness of breath)*; Hypoxia; Pneumonia of [...] (statuses as of 12/15/2024) Medications Saline Nasal [place] 0.65 % Nasal Solution ([place]) Administer 1 [place] into nostril as needed for Congestion. Active [...] Medications Medication Sig Dispense Refill Saline Nasal [place] 0.65 % Nasal Solution ([place]) Administer 1 [place] into nostril as needed for Congestion. Fluticasone [...] Hypertension Grandfather (Maternal) Heart Disorder Grandfather (Maternal) AL at age 56 Stroke Grandfather (Maternal) ? [...] of care were discussed Lucio Bardales PA-C [facility] [address] [facility] [place] [address] documented in this encounter Nursing Notes * [...] Description 09/16/2025 7:40 AM EST Office Visit [facility] [address] [phone] DecemberSharan MD [address] [address] Pending Results Name Type Priority Associated Diagnoses [...] mg documented in this encounter Care Teams Clamp Forklift Operator Relationship Specialty Start Date End Date December, Sharan Beck MD [address] [phone] PCP - General Family Medicine 12/12/24 documented as of this encounter
[2024-12-15 19:53] LABS: Hemoglobin 13.5 g/dl (14.0-18.0)
[2024-12-15] MEDS: ACETAMINOPHEN 325 MG TAB PO PRN (21:06)
[2024-12-16 06:35] LABS: Hematocrit (blood only) 36.1 % (42.0-52.0); Hemoglobin 12.3 g/dl (14.0-18.0); Mean Corpuscular Hemoglobin 29.8 pg (25.0-34.0); Mean Corpuscular Hgb Conc 34.1 g/dL (32.0-36.0); Mean Corpuscular Volume 87.4 fL (80.0-100.0); Mean Platelet Volume 10.8 fL (9.4-12.4); Platelet Count 186 K/uL (130-400); RDW Coefficient of Variation 12.4 % (11.5-14.5); RDW Standard Deviation 39.5 fL (36.4-46.3); Red Blood Count 4.13 M/uL (4.70-6.10)
[2024-12-16 07:18] LABS: BUN Creatinine Ratio 13.3 (10-20); Calcium 8.9 mg/dl (8.6-10.3); Creatinine Clr Calc Pharmacy 91.1 ml/min; Phosphorus 2.9 mg/dl (2.5-4.9); Potassium 4.4 mmol/L (3.5-5.1)
[2024-12-16 07:35] VITALS: TEMP 98.2
[2024-12-16] MEDS: AZITHROMYCIN 250 MG TAB PO SCH (08:20)
[2024-12-16] MEDS: FLUTICASONE PROPIONATE NA SPR 16 GM BTL SCH (08:20)
[2024-12-16] MEDS: CETIRIZINE HCL 10 MG TABLET PO SCH (08:21)
[2024-12-16] MEDS: methylPREDNISolone 40 MG in SYRINGE 0 ML IV SCH (08:23)
[2024-12-16] MEDS ORDERED: methylPREDNISolone 125 MG/2 ML VIAL IV SCH (09:00)
[2024-12-16 11:37] VITALS: BP 148/90; PULSE 82; RESP 18; O2SAT 93
--- NOTE | 2024-12-16 11:49 | Discharge Summary ---
Discharge Summary Date of Service December 16, 2024 Principal Dx & Hospital Course #1 = Principal Diagnosis (1) Acute hypoxemic respiratory failure: (2) RSV (respiratory syncytial virus pneumonia): (3) Asthma with acute exacerbation: (4) Normocytic anemia: Iron deficient (5) Seasonal allergies: Plan Patient 44-year-old gentleman presented to the emergency room with acute shortness of breath. In the emergency room imaging was concerning for possible pneumonia and he tested positive for RSV. Patient has known asthma which exacerbated due to RSV pneumonia as well as seasonal allergies. Patient was s upported with oxygen. Started on steroids and nebulizer treatments. Empirically given some Zithromax. Overnight patient's symptoms significantly improved. He was titrated off oxygen and was ambulating the halls maintaining an O2 sat greater than 90%. His wheezing had resolved and his shortness of breath had resolved. Patient can be transition to oral steroids and discharged home to follow-up with his outpatient providers. During his evaluation here in the hospital also noted to be slightly anemic. It is normocytic. Recommend further evaluation as an outpatient. Notes For Next Care Provider Consider further evaluation outpatient for anemia May need daily maintenance therapy for asthma Medication Changes From Visit Tessalon and guaifenesin for cough and congestion Prednisone burst for exacerbation of asthma Zyrtec and Flonase for allergy symptoms Admission HPI Per Admitting Provider Mr. Tran is a 44 year old gentleman with past medical history remarkable for obesity, asthma, and erectile dysfunction presented to [facility] ED due to shortness of breath. Patient states he noted he was feeling poorly on Tuesday. He experienced weakness and fatigue mostly, until Tuesday evening until this morning, when he noted more shortness of breath and coughing. He began using his albuterol inhaler without much improvement prompting his presentation to a convenient care clinic. They administered a breathing treatment and did a walk test with normal saturations; however, upon attempting to leave the clinic, patient felt lightheaded and more short of breath. EMS was called and patient was brought to ED. Patient denies sputum production, chest pain, diarrhea, urinary symptoms. He reports subjective fevers, cough, and wheezing. He reports notable improvement since arrival to ED, but still with o2 req uirement Of note, heart rates in 120s s/p 1 hour long neb treatment In the ED, vitals were notable for BP of 140s-150s HR of 110s-120s, and O2 sat of high 90s on 4L NC TMAX 38.1 Imaging revealed opacities consistent with infection, RSV positive EKG sinus tachycardia ED interventions: azithro, Rocephin, methylpred, albuterol Patient to be admitted to [facility] for further evaluation and management of acute hypoxic resp failure iso RSV infection Admission Exam Per Admitting Provider See H&P Discharge Exam Constitutional: Alert HEENT: Mucous membranes moist. Lungs: Significantly improved airflow, no wheezes CV: S1-S2, regular Abdomen: Soft, nontender, nondistended Extremities: No significant edema Neuro: No focal deficits Psych: Cooperative, normal mood Updated Medication List Medication Instructions Recorded Confirmed Type montelukast 10 mg tablet 10 mg PO HS 12/15/24 12/15/24 History tadalafil 10 mg tablet 10 mg PO DAILY PRN Erectile 12/15/24 12/15/24 History Dysfunction albuterol sulfate 90 mcg/actuation See Rx Instructions .Route 12/16/24 Rx aerosol inhaler .COMPLEX PRN Wheezing #8.5 grams benzonatate 100 mg capsule 100 mg PO TID PRN cough #30 caps 12/16/24 Rx cetirizine 10 mg tablet 5 mg (1/2 x 10 mg) PO QAM #30 tabs 12/16/24 Rx fluticasone propionate 50 2 spray NA DAILY #16 grams 12/16/24 Rx mcg/actuation nasal spray,suspension guaifenesin 600 mg tablet, 600 mg PO Q12 #30 tabs 12/16/24 Rx extended release 12 hr (Mucinex) iron-vit C-vit D03-dimec acid 100 1 tab PO DAILY #30 tabs 12/16/24 Rx mg-250 mg-25 mcg-1 mg tablet (FE C Plus) prednisone 50 mg tablet 50 mg PO DAILY 5 days #5 tabs 12/16/24 Rx Hospital Stay Data Consultations 12/15/24 16:26 ED Decision to Admit Stat Diagnostic Imagining Performed 12/15/24 15:49 CT for pulmonary embolism PE [CT angio chest PE protocol] Stat Reviewed imaging, laboratory and diagnostic studies. Pertinent findings as below. CT chest negative for PE WBCs 8.2 Hemoglobin 12.3 Electrolytes within normal range Iron 19 TIBC 385 Trans ferritin 275 Percent saturation 5% Ferritin 30.4 B12 and folate within normal range Procalcitonin 0.11 Pending Results Patient Have Any Pending Studies at Discharge: Yes Discharge Instructions Given to Patient (Per Discharging Provider) Anticipate you may have some shortness of breath, cough for a few days as you continue to recover from the RSV bronchitis Total Time Total Time Spent Total Time Spent (In Minutes): 25
== END 2024-12-16 13:01 | disposition home or self-care (01) | DRG 189 ==
LOC: ED 13:23 → 2N 16:33 → SUATTDRO 16:33 → 2N 18:03